=== PATIENT | male | born 1940 | race Caucasian/White ===

== ENCOUNTER 2016-12-07 10:22 | Day surgery (SDC) | payer MEDICARE ==
[2016-12-07] MEDS ORDERED: LIDOCAINE 1% 20 ML VIAL (10MG/ML) FOR IV START INTRADERMA PRN (10:29)
[2016-12-07] MEDS ORDERED: LACTATED RINGERS 1,000 ML IV SCH (10:29)
[2016-12-07 10:39] VITALS: RESP 18; TEMP 98.4
--- NOTE | 2016-12-07 11:32 | P.GSHP ---
History of Present Illness H&P Date: 12/07/16 Chief Complaint: Anal pain, bleeding and itching This a 76-year-old male referred from Dr. Mcfarlane. Patient presents today for colonoscopy. He's had issues with anal pain and bleeding and itching. Past Medical History Past Medical History: GERD/Reflux, Hyperlipidemia History of Any Multi-Drug Resistant Organisms: None Reported Past Surgical History: No Surgical Hx Reported Past Anesthesia/Blood Transfusion Reactions: No Reported Reaction Past Psychological History: No Psychological Hx Reported Smoking Status: Never smoker Medications and Allergies Home Medications Medication Instructions Recorded Confirmed Type Pantoprazole Sodium 40 mg PO DAILY 12/07/16 12/07/16 History Simvastatin [Zocor] 20 mg PO DAILY 12/07/16 12/07/16 History Allergies Allergy/AdvReac Type Severity Reaction Status Date / Time No Known Allergies Allergy Verified 12/07/16 10:34 Surgical - Exam Vital Signs Temp Pulse Resp BP Pulse Ox 98.4 F 82 18 130/90 98 12/07/16 10:38 12/07/16 10:38 12/07/16 10:38 12/07/16 10:38 12/07/16 10:38 - General well developed, no distress - Eyes PERRL - ENT normal pinna - Neck no masses - Respiratory normal expansion - Cardiovascular Rhythm: regular - Abdomen Abdomen: soft, non tender Assessment and Plan Plan: Anal pain, bleeding and itching. We'll perform colonoscopy.
--- NOTE | 2016-12-07 11:48 | P.OP ---
Date of Procedure: 12/07/16 Preoperative Diagnosis: Anal pain, bleeding and itching Postoperative Diagnosis: Internal and external hemorrhoids. Diverticulosis Procedure(s) Performed: colonoscopy Implants: Anesthesia: MAC Surgeon: Nicolás Duenas Pathology: none sent Condition: stable Disposition: PACU Indications for Procedure: Operative Findings: Description of Procedure: Patient's placed on the endoscopy table lateral position. He received IV sedation. Digital rectal exam was performed which revealed internal and external hemorrhoids. Flexible colonoscope was then placed patient anus passed throughout the entire colon. The ileocecal valve was visualized. Cecum, ascending and transverse colon appeared normal. In the descending; there is mild diverticular changes. Scope was brought back the rectum and this appeared normal. Scope was then withdrawn through the anus and there were internal hemorrhoids noted. The scope was also retroflexed and internal hemorrhoids were seen. There was no evidence of an anal fissure. There were minimal external hemorrhoids. The scope withdrawn for patient.
[2016-12-07] MEDS ORDERED: PROPOFOL 10 MG/ML 20 ML VIAL IV ONE (11:49)
[2016-12-07 12:13] VITALS: BP 129/83; PULSE 60
== END 2016-12-07 12:53 | disposition home or self-care (01) ==
LOC: ORWHC2ENDO 10:22
PROVIDERS: ATTEND Surgery
DX: K64.8 Other hemorrhoids (principal); K64.4 Residual hemorrhoidal skin tags; K57.30 Diverticulosis of large intestine without perforation or abscess without bleeding; K21.9 Gastro-esophageal reflux disease without esophagitis; E78.5 Hyperlipidemia, unspecified; Z79.899 Other long term (current) drug therapy
CPT/HCPCS: 45378; J2704

== ENCOUNTER 2017-01-07 08:54 | Day surgery (SDC) | payer MEDICARE ==
[2017-01-05 08:39] VITALS: BMI 28.8
[~2017-01-07 08:54] MED LIST: DEXAMETHASONE SOD PHOSPHATE 10 MG/ML 1 ML VIAL IV ONE; HEPARIN SODIUM,PORCINE 5,000 UNIT/ML 1 ML VIAL SQ ONE; HYDROmorphone 1 MG/ML 1 ML SYRINGE IVP PRN; LACTATED RINGERS 1,000 ML IV SCH; LIDOCAINE 1% 20 ML VIAL (10MG/ML) FOR IV START INTRADERMA PRN; NA PHOS,M-B/NA PHOS,DI-BA 133 ML ENEMA RECTAL ONE; ONDANSETRON 4 MG/2 ML VIAL IVP ONE; Pre Op ABX Message 1 EACH MISC MISCELLANE ONE; SCOPOLAMINE 1.5MG/72HR PATCH TRANSDERM ONE
[2017-01-07] MEDS ORDERED: LIDOCAINE 1% 20 ML VIAL (10MG/ML) FOR IV START INTRADERMA ONE (09:10)
[2017-01-07] MEDS ORDERED: LACTATED RINGERS 1,000 ML IV ONE (09:30)
--- NOTE | 2017-01-07 10:31 | P.GSHP ---
History of Present Illness H&P Date: 01/07/17 Chief Complaint: Internal and external hemorrhoids Cyst 76-year-old male with a trouble with hemorrhoids. Patient's pain bleeding and itching he presents today for hemorrhoidectomy. Past Medical History Past Medical History: GERD/Reflux, Hyperlipidemia, Prostate Disorder Additional Past Medical History / Comment(s): Enlarged Prostate, Hx. of Shingles. Hemorrhoids. History of Any Multi-Drug Resistant Organisms: None Reported Past Surgical History: Appendectomy, Orthopedic Surgery Additional Past Surgical History / Comment(s): Colonoscopy. Back surgery in the past. Past Anesthesia/Blood Transfusion Reactions: No Reported Reaction Smoking Status: Never smoker - Past Family History Mother Family Medical History: No Reported History Sister(s) Family Medical History: Cancer Additional Family Medical History / Comment(s): Lung Medications and Allergies Home Medications Medication Instructions Recorded Confirmed Type Pantoprazole Sodium 40 mg PO DAILY 12/07/16 01/05/17 History Simvastatin [Zocor] 20 mg PO DAILY 12/07/16 01/05/17 History Aspirin [Adult Low Dose Aspirin EC] 81 mg PO DAILY PRN 01/05/17 01/05/17 History Benazepril/Hydrochlorothiazide 1 each PO DAILY 01/05/17 01/05/17 History [Benazepril-Hctz 20-12.5 mg Tab] Cholecalciferol [Vitamin D3] 2,000 unit PO DAILY 01/05/17 01/05/17 History Ibuprofen [Motrin] 400 mg PO Q6HR PRN 01/05/17 01/05/17 History Multivitamin [Men's Multi-Vitamin] 1 each PO DAILY 01/05/17 01/05/17 History [place]-3/Dha/Epa/Fish Oil [Fish Oil 1 each PO TID 01/05/17 01/05/17 History 500 mg Softgel] Qeely-Tn-Ruhb (Unknown Dose) 1 tab PO DAILY 01/05/17 01/05/17 History Tamsulosin [Flomax] 0.4 mg PO DAILY 01/05/17 01/05/17 History Allergies Allergy/AdvReac Type Severity Reaction Status Date / Time No Known Allergies Allergy Verified 01/05/17 08:25 Surgical - Exam Vital Signs Temp Pulse Resp BP Pulse Ox 98.1 F 73 18 143/83 97 01/07/17 09:00 01/07/17 09:00 01/07/17 09:00 01/07/17 09:00 01/07/17 09:00 - General well developed, no distress - Eyes PERRL - ENT normal pinna - Neck no masses - Respiratory normal expansion - Cardiovascular Rhythm: regular - Abdomen Abdomen: soft, non tender - Rectum Hemorrhoids: moderate Assessment and Plan Plan: Internal and external hemorrhoids. We'll perform hemorrhagic.
[2017-01-07] MEDS ORDERED: BUPIVACAIN-EPI 0.5%-1:200,000 30 ML VIAL SQ ONE ×2 (10:48)
[2017-01-07] MEDS ORDERED: fentaNYL (PF) 50 MCG/ML 2 ML AMP ONE (10:51)
[2017-01-07] MEDS ORDERED: MIDAZOLAM 2 MG/2 ML VIAL ONE (10:51)
[2017-01-07] MEDS ORDERED: KETAMINE 10 MG/ML 20 ML VIAL ONE (10:51)
[2017-01-07] MEDS ORDERED: GELATIN SPONGE,ABSORB (LARGE) 1 EACH SPONGE TOPICAL ONE (11:06)
[2017-01-07 11:26] VITALS: TEMP 98.5
[2017-01-07 11:32] VITALS: RESP 16
--- NOTE | 2017-01-07 12:16 | P.OP ---
Date of Procedure: 01/07/17 Preoperative Diagnosis: Internal and external hemorrhoids Postoperative Diagnosis: Internal and external hemorrhoids Procedure(s) Performed: Hemorrhoidectomy Implants: Anesthesia: MAC Surgeon: Nicolás Duenas Estimated Blood Loss (ml): 5 Pathology: other (Internal and external hemorrhoids) Condition: stable Disposition: PACU Indications for Procedure: Operative Findings: Description of Procedure: The patient's placed on the operative table in the prone jackknife position. He received IV sedation. His perineum was prepped and draped usual sterile fashion. The peritoneum was anesthetized 1% local Xylocaine. Using the bivalved anal retractor the emergency exposed. The right anterior hemorrhoidal column was grasped with the Allis clamp then using the Harmonic scissors the hemorrhoid was performed. The right posterior and left lateral hemorrhoidal column was excised in similar fashion. There is no bleeding seen. The anus was packed with a Gelfoam. Patient sent to recovery in stable condition.
[2017-01-07 13:18] VITALS: BP 117/75; PULSE 74
[2017-01-07] MEDS ORDERED: MINERAL OIL 133 ML ENEMA RECTAL ONE (23:00)
== END 2017-01-07 13:56 | disposition home or self-care (01) ==
LOC: OR 08:54
PROVIDERS: ATTEND Surgery
DX: K64.8 Other hemorrhoids (principal); K64.4 Residual hemorrhoidal skin tags; K21.9 Gastro-esophageal reflux disease without esophagitis; E78.5 Hyperlipidemia, unspecified; N40.0 Benign prostatic hyperplasia without lower urinary tract symptoms; I10 Essential (primary) hypertension; Z79.82 Long term (current) use of aspirin; Z79.1 Long term (current) use of non-steroidal anti-inflammatories (NSAID); Z79.899 Other long term (current) drug therapy
CPT/HCPCS: 88304; 46260; J2250; J1644; J1100; J2405; J3010

== ENCOUNTER → 2019-07-20 | Outpatient (CLI) | payer MEDICARE ==
[2019-07-20 10:32] LABS: Basophils # (A) 0.1 k/uL (0-0.2); Basophils % (A) 1 %; Eosinophils # (A) 0.2 k/uL (0-0.7); Eosinophils % (A) 3 %; HCT 40.5 % (39.0-53.0); HGB 13.5 gm/dL (13.0-17.5); Lymphocytes # (A) 1.9 k/uL (1.0-4.8); Lymphocytes % (A) 21 %; MCH 30.7 pg (25.0-35.0); MCHC 33.3 g/dL (31.0-37.0); MCV 92.4 fL (80.0-100.0); Mean Platelet Volume 7.4; Monocytes # (A) 0.7 k/uL (0-1.0); Monocytes % (A) 8 %; Neutrophils # (A) 5.8 k/uL (1.3-7.7); Neutrophils % (A) 65 %; Platelet Count 251 k/uL (150-450); RBC 4.39 m/uL (4.30-5.90); RDW 13.3 % (11.5-15.5)
[2019-07-20 10:57] LABS: Potassium 4.7 mmol/L (3.5-5.1)
== END | disposition home or self-care (01) ==
LOC: LABPAT 09:10
PROVIDERS: ATTEND Orthopaedic Surgery
DX: Z01.812 Encounter for preprocedural laboratory examination (principal); G56.02 Carpal tunnel syndrome, left upper limb
CPT/HCPCS: 80051; 85025

== ENCOUNTER 2019-08-03 09:38 | Day surgery (SDC) | payer MEDICARE ==
[2019-07-31 16:59] VITALS: BMI 28.5
--- NOTE | 2019-08-02 14:32 | HP ---
HISTORY AND PHYSICAL DATE OF SURGERY: 08/03/2019 Suhail Carreon is an 79-year-old patient seen with symptomatic left carpal tunnel syndrome. We discussed options for treatment. Patient elected to proceed with decompression of left median nerve. Consent was obtained. PAST MEDICAL HISTORY: Hypertension, hyperlipidemia. PAST SURGICAL HISTORY: Noncontributory. DAILY MEDICATIONS: 1. Aspirin. 2. Benazepril/hydrochlorothiazide. 3. Simvastatin. ALLERGIES: None. SOCIAL HISTORY: Denies current tobacco use. PHYSICAL EVALUATION OF THE LEFT HAND: He has a positive carpal compression and carpal Tinel's causing the increased numbness, tingling throughout the median nerve distribution. There is decreased sensation throughout the median, median, and median nerve distribution. There is good perfusion distally. There is a good radial pulse present. There is no tenderness along the A1 jay areas. RADIOGRAPHS OF THE LEFT WRIST: Reveal some osteoarthritic changes involving the carpometacarpal joint. An EMG of the upper extremities revealed carpal tunnel syndrome bilaterally. IMPRESSION: 1. Left carpal tunnel syndrome. 2. Hypertension. 3. Hyperlipidemia. PLAN: Decompression of left median nerve. MMODL / IJN: [id number] /
[~2019-08-03 09:38] MED LIST changes: -HEPARIN SODIUM,PORCINE 5,000 UNIT/ML 1 ML VIAL SQ ONE; -HYDROmorphone 1 MG/ML 1 ML SYRINGE IVP PRN; +MIDAZOLAM 2 MG/2 ML VIAL IV PRN; -NA PHOS,M-B/NA PHOS,DI-BA 133 ML ENEMA RECTAL ONE; -ONDANSETRON 4 MG/2 ML VIAL IVP ONE; -Pre Op ABX Message 1 EACH MISC MISCELLANE ONE; -SCOPOLAMINE 1.5MG/72HR PATCH TRANSDERM ONE; +fentaNYL (PF) 50 MCG/ML 2 ML AMP IV PRN
[2019-08-03 10:07] VITALS: TEMP 98.3
[2019-08-03] MEDS ORDERED: LIDOCAINE 1% 20 ML VIAL (10MG/ML) FOR IV START SQ ONE (10:11)
[2019-08-03] MEDS ORDERED: ONDANSETRON 4 MG/2 ML VIAL IVP ONE (10:12)
[2019-08-03] MEDS ORDERED: LIDOCAINE 1% INJ 10MG/ML (20 ML MDV) ONE (11:34)
[2019-08-03] MEDS ORDERED: KETAMINE 10 MG/ML 20 ML VIAL ONE (11:34)
[2019-08-03] MEDS ORDERED: MIDAZOLAM 2 MG/2 ML VIAL ONE (11:34)
[2019-08-03] MEDS ORDERED: fentaNYL (PF) 50 MCG/ML 2 ML AMP ONE (11:34)
[2019-08-03] MEDS ORDERED: PROPOFOL 10 MG/ML 20 ML VIAL IV ONE (11:34)
[2019-08-03] MEDS ORDERED: BUPIVACAINE (PF) 0.25% 30 ML VIAL SQ ONE ×2 (11:39→11:49)
--- NOTE | 2019-08-03 12:07 | P.OP ---
Date of Procedure: 08/03/19 Preoperative Diagnosis: Left carpal tunnel syndrome Postoperative Diagnosis: Same Procedure(s) Performed: Decompression left median nerve Anesthesia: MAC, local Surgeon: Cholo Reyes Estimated Blood Loss (ml): 0 Pathology: none sent Condition: stable Disposition: PACU Indications for Procedure: 79-year-old patient seen with symptomatic left carpal tunnel syndrome. After having treatment options discussed, he elected to proceed with decompression median nerve. Operative Findings: See description of procedure Description of Procedure: The patient was taken to the operative suite. The patient received IV sedation by the department of anesthesia. A well-padded tourniquet was placed along the proximal left upper extremity. The left upper extremity was prepped and draped in the normal sterile orthopedic fashion. The proposed incision site was infiltrated with 10 mL quarter percent plain Marcaine. When sufficient local anesthesia was noted the extremity was elevated and tourniquet insufflated to 250. I now made an incision beginning at the distal volar wrist crease extending distally approximately 3 cm in line with the fourth metacarpal sharply through skin. I dissected down through the palmar fascia to the transverse carpal ligament. I made a small dudley incision through the transverse carpal ligament. I now released that transcarpal ligament proximally and distally with blunt Metzenbaums. There was good complete release of the transverse carpal ligament. There was good decompression of the nerve. We had good hemostasis. The wound was irrigated. The skin margins were proximal nylon suture. I applied sterile dressings. The tourniquet was released with immediate capillary refill of all digits. Patient was awakened and then transferred to recovery stable condition.
[2019-08-03 12:29] VITALS: BP 138/85; PULSE 63; RESP 18
== END 2019-08-03 12:50 | disposition home or self-care (01) ==
LOC: OR 09:38
PROVIDERS: ATTEND Orthopaedic Surgery
DX: G56.03 Carpal tunnel syndrome, bilateral upper limbs (principal); I10 Essential (primary) hypertension; E78.5 Hyperlipidemia, unspecified; N40.0 Benign prostatic hyperplasia without lower urinary tract symptoms; K64.9 Unspecified hemorrhoids; Z79.82 Long term (current) use of aspirin; Z79.899 Other long term (current) drug therapy
CPT/HCPCS: 64721; J2250; J1100; J0690; J2405; J2001; J3010; J2704

== ENCOUNTER → 2021-01-03 | Outpatient (CLI) | payer MEDICARE ==
--- NOTE | 2021-01-04 04:42 | MR ---
EXAMINATION TYPE: MR brain and iac wo/w con DATE OF EXAM: 01/03/2021 COMPARISON: 01/25/2016 HISTORY: Benign neoplasm of brain, supratentorial, dizziness CONTRAST: Standard multiplanar, multisequence MRI departmental protocol utilizing 8.5 mL intravenous Gadavist g adolinium contrast. Diffusion images show no evidence of an acute infarct. There is cerebral cortical atrophy. There is n o mass effect nor midline shift. There is extensive patchy white matter increased signal in the cereb ral hemispheres bilaterally involving all of the lobes. These measure up to 12 mm and are somewhat co alescent around the lateral ventricles. Total number of lesions is probably more than 50. The brainst em shows small area of increased signal in the posterior luigi. The sella turcica appears normal. Ther e is no evidence of orbital mass. The internal auditory canals appear normal. There is no evidence of cerebellopontine angle mass. The acoustic nerve and vestibular nerves appear intact. There is no pathologic posterior fossa enhancemen t. There is normal enhancement of the venous sinuses. There is some increased signal on the T2 images in the right mastoid air cells suggestive of mastoiditis. 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 Cerebral atrophy. No focal posterior fossa abnormality. Changes of right-sided mastoiditis. Unchanged .
== END | disposition home or self-care (01) ==
LOC: RADMRIMAIN 12:55
PROVIDERS: ATTEND Psychiatry & Neurology Neurology
DX: D33.0 Benign neoplasm of brain, supratentorial (principal); I67.82 Cerebral ischemia; G31.9 Degenerative disease of nervous system, unspecified; R90.82 White matter disease, unspecified; H70.91 Unspecified mastoiditis, right ear
CPT/HCPCS: 70553; A9585

== ENCOUNTER → 2021-08-08 | Outpatient (CLI) | payer MEDICARE ==
--- NOTE | 2021-08-09 07:45 | CT ---
EXAMINATION TYPE: CT iac wo con DATE OF EXAM: 08/08/2021 COMPARISON: MRI dated 01/03/2021 HISTORY: Mastoiditis, unspecified ear, dizziness CT DLP: 150mGycm Automated exposure control for dose reduction was used. FINDINGS: Partially opacified right mastoid cells. The right aditus and antrum is patent. Intact right scutum w ith preserved right Prussak space. Unremarkable right middle ear cavity and ossicles. Symmetrical unr emarkable inner ear structures and internal auditory canals. Unremarkable left middle ear cavity. Clear left mastoid air cells. Symmetrical unremarkable external auditory canals. Mucosal thickening of the left maxillary sinus. Degenerative changes of the atlantoo dontoid articulation. Unremarkable orbits. IMPRESSION: Partially opacified right mastoid cells suggestive of mastoiditis, appreciated previously. Otherwise unremarkable temporal bones.
== END | disposition home or self-care (01) ==
LOC: RADCTMAIN 14:49
PROVIDERS: ATTEND Otolaryngology
DX: H70.91 Unspecified mastoiditis, right ear (principal)
CPT/HCPCS: 70480

== ENCOUNTER 2023-04-01 15:30 | Emergency (ER) | payer MEDICARE ==
--- NOTE | 2023-04-01 15:50 | ED ---
General Adult HPI - General Stated complaint: unable to urinate Time Seen by Provider: 04/01/23 15:49 Source: patient, RN notes reviewed Mode of arrival: ambulatory Limitations: no limitations - History of Present Illness Initial comments: 82-year-old male presenting with chief complaint of difficulty urinating. Patient had Simms catheter removed by Dr. Stout today in the office. He has not urinated since removing the Simms catheter. He denies any suprapubic pain. No obvious hematuria. No flank pain. No fevers or chills. No nausea or vomiting. - Related Data Home Medications Medication Instructions Recorded Confirmed Pantoprazole Sodium 40 mg PO DAILY 12/07/16 08/03/19 Simvastatin [Zocor] 20 mg PO DAILY 12/07/16 08/03/19 Aspirin [Adult Low Dose Aspirin EC] 81 mg PO DAILY PRN 01/05/17 07/31/19 Benazepril/Hydrochlorothiazide 1 each PO HS 01/05/17 08/03/19 [Benazepril-Hctz 20-12.5 mg Tab] Cholecalciferol [Vitamin D3] 2,000 unit PO DAILY 01/05/17 08/03/19 Multivitamin [Men's Multi-Vitamin] 1 each PO DAILY 01/05/17 08/03/19 [place]-3/Dha/Epa/Fish Oil [Fish Oil 1 each PO TID 01/05/17 08/03/19 500 mg Softgel] Cpnlq-Un-Liza (Unknown Dose) 1 tab PO DAILY 01/05/17 08/03/19 Tamsulosin [Flomax] 0.4 mg PO DAILY 01/05/17 08/03/19 Allergies Allergy/AdvReac Type Severity Reaction Status Date / Time No Known Allergies Allergy Verified 04/01/23 15:51 Review of Systems ROS Statement: Those systems with pertinent positive or pertinent negative responses have been documented in the HPI. ROS Other: All systems not noted in ROS Statement are negative. Past Medical History Past Medical History: GERD/Reflux, Hyperlipidemia, Prostate Disorder Additional Past Medical History / Comment(s): Enlarged Prostate, Hx. of Shingles. Hemorrhoids. History of Any Multi-Drug Resistant Organisms: None Reported Past Surgical History: Appendectomy, Orthopedic Surgery Additional Past Surgical History / Comment(s): Colonoscopy. Back surgery in the past. Past Anesthesia/Blood Transfusion Reactions: No Reported Reaction Past Psychological History: No Psychological Hx Reported Past Alcohol Use History: Occasional Past Drug Use History: None Reported - Past Family History Mother Family Medical History: No Reported History Sister(s) Family Medical History: Cancer Additional Family Medical History / Comment(s): Lung General Exam - General Exam Comments Initial Comments: Visual Physical Exam Vital signs reviewed General: Well-appearing, nontoxic, no acute distress. Head: Normocephalic, atraumatic Eyes: PERRLA, EOMI ENT: Airway patent Chest: Nonlabored breathing Skin: No visual rash, normal skin tone Neuro: Alert and oriented 3 Musculoskeletal: No gross abnormalities Limitations: no limitations General appearance: alert, in no apparent distress Head exam: Present: atraumatic, normocephalic, normal inspection Eye exam: Present: normal appearance, EOMI Neck exam: Present: normal inspection, full ROM Respiratory exam: Absent: respiratory distress GI/Abdominal exam: Present: soft. Absent: distended, tenderness, guarding, rebound, rigid Neurological exam: Present: alert, oriented X3 Psychiatric exam: Present: normal affect, normal mood Skin exam: Present: warm, dry, intact, normal color. Absent: rash Course Vital Signs 04/01/23 04/01/23 15:49 19:10 Temperature 97.9 F 98.1 F Pulse Rate 80 76 Respiratory 16 18 Rate Blood Pressure 139/76 131/78 O2 Sat by Pulse 96 98 Oximetry Medical Decision Making - Medical Decision Making Was pt. sent in by a medical professional or institution (, PA, TEMPLATE REPRODUCTION TECHNICIAN, urgent care, hospital, or correction...) When possible be specific @ -No Did you speak to anyone other than the patient for history (EMS, parent, family, police, friend...)? What history was obtained from this source @ -No Did you review nursing and triage notes (agree or disagree)? Why? @ -I reviewed and agree with nursing and triage notes Were old charts reviewed (outside hosp., previous admission, EMS record, old EKG, old radiological studies, urgent care reports/EKG's, correction records)? Report findings @ -No old charts were reviewed Differential Diagnosis (chest pain, altered mental status, abdominal pain women, abdominal pain men, vaginal bleeding, weakness, fever, dyspnea, syncope, headache, dizziness, GI bleed, back pain, seizure, CVA, palpatations, mental health, musculoskeletal)? @ -Differential includes UTI, obstructive uropathy, this is not an all inclusive list EKG interpreted by me (3pts min.). @ -As above X-rays interpreted by me (1pt min.). @ -None done CT interpreted by me (1pt min.). @ -None done U/S interpreted by me (1pt. min.). @ -None done What testing was considered but not performed or refused? (CT, X-rays, U/S, labs)? Why? @ -None What meds were considered but not given or refused? Why? @ -None Did you discuss the management of the patient with other professionals (professionals i.e. Dr., PA, TEMPLATE REPRODUCTION TECHNICIAN, lab, RT, psych nurse, high school social studies tutor, distributor sales manager, teacher, forest fire officer, catalytic case operator)? Give summary @ -No Was smoking cessation discussed for >3mins.? @ -No Was critical care preformed (if so, how long)? @ -No Were there social determinants of health that impacted care today? How? (Homelessness, low income, unemployed, alcoholism, drug addiction, transportation, low edu. Level, literacy, decrease access to med. care, long term, rehab)? @ -No Was there de-escalation of care discussed even if they declined (Discuss DNR or withdrawal of care, Hospice)? DNR status @ -No What co-morbidities impacted this encounter? (DM, HTN, Smoking, COPD, CAD, Cancer, CVA, ARF, Chemo, Hep., AIDS, mental health diagnosis, sleep apnea, morbid obesity)? @ -None Was patient admitted / discharged? Hospital course, mention meds given and route, prescriptions, significant lab abnormalities, going to OR and other pertinent info. @ -82-year-old male presenting with chief complaint of difficulty urinating. He had a Simms catheter removed by his urologist in the office and has not urinated since. On bladder scan he has 291 mL in the bladder. Simms catheter is placed and the patient was immediately able to drain. Urine shows no evidence of UTI. Patient is instructed to follow-up with his urologist Dr. Stout. Follow-up with PCP. Report back to ER with any new or worsening symptoms. Discussed return parameters and answered all questions. Patient conveyed verbal understanding and agreed to the plan. I discussed this case in detail with my attending Dr. Dela Cruz Undiagnosed new problem with uncertain prognosis? @ -No Drug Therapy requiring intensive monitoring for toxicity (Heparin, Nitro, Insulin, Cardizem)? @ -No Were any procedures done? @ -No Diagnosis/symptom? @ -Urinary retention Acute, or Chronic, or Acute on Chronic? @ -Acute Uncomplicated (without systemic symptoms) or Complicated (systemic symptoms)? @ -uncomplicated Side effects of treatment? @ -No Exacerbation, Progression, or Severe Exacerbation? @ -No Poses a threat to life or bodily function? How? (Chest pain, [place], [place], pneumonia, PE, COPD, DKA, ARF, appy, cholecystitis, CVA, Diverticulitis, Homicidal, Suicidal, threat to staff... and all critical care pts) @ -No - Lab Data Lab Results 04/01/23 Range/Units 18:02 Urine Color Yellow Urine Appearance Clear (Clear) Urine pH 5.5 (5.0-8.0) Ur Specific [place] 1.024 (1.001-1.035) Urine Protein Trace H (Negative) Urine Glucose (UA) Negative (Negative) Urine Ketones Negative (Negative) Urine Blood Negative (Negative) Urine Nitrite Negative (Negative) Urine Bilirubin Negative (Negative) Urine Urobilinogen <2.0 (<2.0) mg/dL Ur Leukocyte Esterase Negative (Negative) Disposition Clinical Impression: Urinary retention Disposition: HOME SELF-CARE Condition: Good Instructions (If sedation given, give patient instructions): Urinary Retention in Men (ED) Additional Instructions: Follow-up with PCP and urologist. Report back to ER with any new or worsening symptoms. Is patient prescribed a controlled substance at d/c from ED?: No Referrals: Marcelino Mcfarlane MD [Primary Care Provider] - 1-2 days Beni Stout MD [STAFF PHYSICIAN] - 1-2 days Time of Disposition: 18:49
[2023-04-01 18:33] LABS: Appearance,Urine Clear (Clear); Bilirubin,Urine Negative (Negative); Blood,Urine Negative (Negative); Color,Urine Yellow; Glucose,Urine (UA) Negative (Negative); Ketones,Urine Negative (Negative); Leukocyte Esterase,Urine Negative (Negative); Nitrite,Urine Negative (Negative); PH, Urine 5.5 (5.0-8.0); Protein,Urine Trace (Negative); Specific Gravity,Urine 1.024 (1.001-1.035); Urobilinogen,Urine <2.0 mg/dL (<2.0)
[2023-04-01 19:25] VITALS: BP 131/78; PULSE 76; RESP 18; TEMP 98.1
== END 2023-04-01 19:13 | disposition home or self-care (01) ==
LOC: EC 15:30
DX: R33.9 Retention of urine, unspecified (principal); E78.5 Hyperlipidemia, unspecified; K21.9 Gastro-esophageal reflux disease without esophagitis; Z79.899 Other long term (current) drug therapy
CPT/HCPCS: 51702; 51798; 81003; 99283; 99284

== ENCOUNTER 2023-05-14 03:16 | Emergency (ER) | payer MEDICARE ==
[2023-05-14 03:45] VITALS: RESP 18
[2023-05-14] MEDS ORDERED: LIDOCAINE 2% URO-JET JELLY 5 ML KIT URETHRAL ONE (03:49)
[2023-05-14 04:38] LABS: Amorphous Sediment,Urine Rare /hpf; Bacteria,Urine Moderate /hpf; Mucus,Urine Rare /hpf; RBC,Urine >182 /hpf (0-5); Squamous Epithelial Cell,Urine 1 /hpf (0-4); WBC,Urine 36 /hpf (0-5)
[2023-05-14 04:39] LABS: Appearance,Urine Bloody (Clear); Color,Urine Light Red; Specific Gravity,Urine 1.015 (1.001-1.035)
[2023-05-14 04:40] LABS: Bilirubin,Urine Negative (Negative); Blood,Urine Large (Negative); Glucose,Urine (UA) Negative (Negative); Ketones,Urine Negative (Negative); Leukocyte Esterase,Urine Moderate (Negative); Nitrite,Urine Negative (Negative); Protein,Urine 1+ (Negative); Urobilinogen,Urine 0.2 mg/dL (<2.0)
[2023-05-14] MEDS ORDERED: SULFAMETHOX-TMP 800-160MG 1 EACH TAB PO STA (04:48)
--- NOTE | 2023-05-14 04:55 | ED ---
General Adult HPI - General Chief complaint: Urogenital Stated complaint: Post op complication Time Seen by Provider: 05/14/23 03:51 Source: patient, RN notes reviewed, old records reviewed Mode of arrival: ambulatory Limitations: no limitations - History of Present Illness Initial comments: Patient is an 82-year-old male presents with department for any urinary retention. Recently had a procedure on his prostate by Dr. Cobian. Was progressing well and had his indwelling Simsm catheter removed earlier today. Has been unable to urinate since last night. Presents as a police he needs replacement of the Smims catheter. No other symptoms at this time other than suprapubic abdominal discomfort. - Related Data Home Medications Medication Instructions Recorded Confirmed Pantoprazole Sodium 40 mg PO DAILY 12/07/16 08/03/19 Simvastatin [Zocor] 20 mg PO DAILY 12/07/16 08/03/19 Aspirin [Adult Low Dose Aspirin EC] 81 mg PO DAILY PRN 01/05/17 07/31/19 Benazepril/Hydrochlorothiazide 1 each PO HS 01/05/17 08/03/19 [Benazepril-Hctz 20-12.5 mg Tab] Cholecalciferol [Vitamin D3] 2,000 unit PO DAILY 01/05/17 08/03/19 Multivitamin [Men's Multi-Vitamin] 1 each PO DAILY 01/05/17 08/03/19 [place]-3/Dha/Epa/Fish Oil [Fish Oil 1 each PO TID 01/05/17 08/03/19 500 mg Softgel] [id number] (Unknown Dose) 1 tab PO DAILY 01/05/17 08/03/19 Tamsulosin [Flomax] 0.4 mg PO DAILY 01/05/17 08/03/19 Previous Rx's Medication Instructions Recorded Sulfamethox-Tmp 800-160Mg [Bactrim 1 tab PO Q12HR 7 Days #14 tab 05/14/23 DS 800-160 mg] Allergies Allergy/AdvReac Type Severity Reaction Status Date / Time No Known Allergies Allergy Verified 04/01/23 15:51 Review of Systems ROS Statement: Those systems with pertinent positive or pertinent negative responses have been documented in the HPI. Review of Systems: CONST: Denies fever EYES: Denies blurry vision ENT: Denies nasal congestion C/V: Denies Chest pain RESP: Denies shortness of breath GI: Endorses suprapubic abdominal pain : Endorses urinary retention SKIN: Denies rash. MSK: Denies joint pain. NEURO: Denies headache ROS Other: All systems not noted in ROS Statement are negative. Past Medical History Past Medical History: GERD/Reflux, Hyperlipidemia, Prostate Disorder Additional Past Medical History / Comment(s): Enlarged Prostate, Hx. of Shingles. Hemorrhoids. History of Any Multi-Drug Resistant Organisms: None Reported Past Surgical History: Appendectomy, Orthopedic Surgery Additional Past Surgical History / Comment(s): Colonoscopy. Back surgery in the past. Past Anesthesia/Blood Transfusion Reactions: No Reported Reaction Past Psychological History: No Psychological Hx Reported Past Alcohol Use History: Occasional Past Drug Use History: None Reported - Past Family History Mother Family Medical History: No Reported History Sister(s) Family Medical History: Cancer Additional Family Medical History / Comment(s): Lung General Exam - General Exam Comments Initial Comments: General: Appears in mild distress distress. HEAD: Normal with no signs of head trauma. EYES: EOMI ENT: Hearing grossly intact, normal oropharynx. RESPIRATORY: Clear breath sounds bilaterally C/V: S1 and S2 auscultated ABD: Abdomen is soft, with suprapubic distention and tenderness. No guarding. No rebound tenderness. No peritoneal signs. EXT: Normal range of motion, no obvious deformity SKIN: No rashes or lesions observed on exposed skin. NEURO: Alert and oriented 4. Limitations: no limitations Course Vital Signs 05/14/23 03:32 Temperature 98 F Pulse Rate 80 Respiratory 18 Rate Blood Pressure 167/98 O2 Sat by Pulse 98 Oximetry Medical Decision Making - Medical Decision Making Was pt. sent in by a medical professional or institution (, PA, BARBER TOOL SHARPENER, urgent care, hospital, or fci...) When possible be specific @ -No Did you speak to anyone other than the patient for history (EMS, parent, family, police, friend...)? What history was obtained from this source @ -No Did you review nursing and triage notes (agree or disagree)? Why? @ -I reviewed and agree with nursing and triage notes Were old charts reviewed (outside hosp., previous admission, EMS record, old EKG, old radiological studies, urgent care reports/EKG's, fci records)? Report findings @ -Old charts reviewd Differential Diagnosis (chest pain, altered mental status, abdominal pain women, abdominal pain men, vaginal bleeding, weakness, fever, dyspnea, syncope, headache, dizziness, GI bleed, back pain, seizure, CVA, palpatations, mental health, musculoskeletal)? @ -Urinary retention, UTI. This list is not all-inclusive. EKG interpreted by me (3pts min.). @ -None done X-rays interpreted by me (1pt min.). @ -None done CT interpreted by me (1pt min.). @ -None done U/S interpreted by me (1pt. min.). @ -None done What testing was considered but not performed or refused? (CT, X-rays, U/S, labs)? Why? @ -None What meds were considered but not given or refused? Why? @ -None Did you discuss the management of the patient with other professionals (professionals i.e. , PA, BARBER TOOL SHARPENER, lab, RT, psych nurse, vp digital marketing social media and crm, doctor of dental medicine, teacher, chief development officer, case worker)? Give summary @ -No Was smoking cessation discussed for >3mins.? @ -No Was critical care preformed (if so, how long)? @ -No Were there social determinants of health that impacted care today? How? (Homelessness, low income, unemployed, alcoholism, drug addiction, transportation, low edu. Level, literacy, decrease access to med. care, care home, rehab)? @ -No Was there de-escalation of care discussed even if they declined (Discuss DNR or withdrawal of care, Hospice)? DNR status @ -No What co-morbidities impacted this encounter? (DM, HTN, Smoking, COPD, CAD, Cancer, CVA, ARF, Chemo, Hep., AIDS, mental health diagnosis, sleep apnea, morbid obesity)? @ -None Was patient admitted / discharged? Hospital course, mention meds given and route, prescriptions, significant lab abnormalities, going to OR and other pertinent info. @ -Based on the patient's presentation and physical exam, presents with suspected urinary retention. Bladder scan shows over 500 mL of urine. We will replace his Simms catheter which was removed earlier today. He was in agreement this plan. Vital signs within acceptable limits. Patient tolerated the procedure well. Patient's urinalysis is concerning for UTI and therefore he will be started on Bactrim. He'll be discharged home at this time with strict term precautions as well as instructions to follow up with his urologist Dr. Cassidy. He was in agreement this plan. I will provide the patient with a prescription for Bactrim. I instructed the patient to follow up with their PCP in the next 1-3 days. I provided contact information for follow up with Dr. Stout. I explained that the patient should return to the emergency department if they experience any worsening symptoms. Strict return precautions were discussed with the patient. The patient expressed understanding of these instructions. I answered all questions that the patient had. The patient was discharged home in good condition with their prescriptions and follow up information. Undiagnosed new problem with uncertain prognosis? @ -No Drug Therapy requiring intensive monitoring for toxicity (Heparin, Nitro, Insulin, Cardizem)? @ -No Were any procedures done? @ -No Diagnosis/symptom? @ -Urinary retention, UTI, Simms catheter placement Acute, or Chronic, or Acute on Chronic? @ -Acute Uncomplicated (without systemic symptoms) or Complicated (systemic symptoms)? @ -complicated Side effects of treatment? @ -No Exacerbation, Progression, or Severe Exacerbation? @ -No Poses a threat to life or bodily function? How? (Chest pain, [place], [place], pneumonia, PE, COPD, DKA, ARF, appy, cholecystitis, CVA, Diverticulitis, Homicidal, Suicidal, threat to staff... and all critical care pts) @ -No - Lab Data Lab Results 05/14/23 Range/Units 03:55 Urine Color Light Red Urine Appearance Bloody (Clear) Urine pH 6.0 (5.0-8.0) Ur Specific [place] 1.015 (1.001-1.035) Urine Protein 1+ H (Negative) Urine Glucose (UA) Negative (Negative) Urine Ketones Negative (Negative) Urine Blood Large H (Negative) Urine Nitrite Negative (Negative) Urine Bilirubin Negative (Negative) Urine Urobilinogen 0.2 (<2.0) mg/dL Ur Leukocyte Esterase Moderate H (Negative) Urine RBC >182 H (0-5) /hpf Urine WBC 36 H (0-5) /hpf Ur Squamous Epith Cells 1 (0-4) /hpf Amorphous Sediment Rare H (None) /hpf Urine Bacteria Moderate H (None) /hpf Urine Mucus Rare H (None) /hpf Disposition Clinical Impression: Simms catheter in place, Urinary retention, UTI (urinary tract infection) Disposition: HOME SELF-CARE Condition: Good Instructions (If sedation given, give patient instructions): Urinary Tract Infection in Men (ED), Simms Catheter Placement and Care (ED) Prescriptions: Sulfamethox-Tmp 800-160Mg [Bactrim DS 800-160 mg] 1 tab PO Q12HR 7 Days #14 tab Is patient prescribed a controlled substance at d/c from ED?: No Referrals: Marcelino Mcfarlane MD [Primary Care Provider] - 1-2 days Beni Stout MD [STAFF PHYSICIAN] - 1-2 days Time of Disposition: 04:48
[2023-05-14 05:24] VITALS: BP 130/84; PULSE 79; TEMP 97.9
== END 2023-05-14 05:15 | disposition home or self-care (01) ==
LOC: EC 03:16
DX: T83.098A Other mechanical complication of other urinary catheter, initial encounter (principal); R33.9 Retention of urine, unspecified; N39.0 Urinary tract infection, site not specified; K21.9 Gastro-esophageal reflux disease without esophagitis; E78.5 Hyperlipidemia, unspecified; Z79.899 Other long term (current) drug therapy; Z79.82 Long term (current) use of aspirin
CPT/HCPCS: 51702; 51798; 81001; 87086; 99284

== ENCOUNTER 2023-05-23 02:53 | Inpatient (IN) | payer MEDICARE ==
[2023-05-23 04:28] LABS: Basophils % (A) 0 %; Eosinophils # (A) 0.3 k/uL (0-0.7); Eosinophils % (A) 4 %; HCT 33.5 % (39.0-53.0); HGB 11.6 gm/dL (13.0-17.5); Lymphocytes # (A) 0.6 k/uL (1.0-4.8); Lymphocytes % (A) 7 %; MCH 30.9 pg (25.0-35.0); MCHC 34.5 g/dL (31.0-37.0); MCV 89.7 fL (80.0-100.0); Mean Platelet Volume 7.9; Monocytes # (A) 0.2 k/uL (0-1.0); Monocytes % (A) 2 %; Neutrophils # (A) 6.9 k/uL (1.3-7.7); Neutrophils % (A) 84 %; Platelet Count 157 k/uL (150-450); RBC 3.74 m/uL (4.30-5.90); RDW 13.4 % (11.5-15.5); WBC 8.2 k/uL (3.8-10.6)
[2023-05-23 04:45] LABS: ALT 110 U/L (4-49); AST 65 U/L (17-59); African American GFR (CKD) 44 (>60 ml/min/1.73 sqM); Albumin 3.6 g/dL (3.5-5.0); Alkaline Phosphatase 85 U/L (38-126); Anion Gap 14 mmol/L; Blood Urea Nitrogen 24 mg/dL (9-20); C Reactive Protein 8.9 mg/dL (<1.0); Calcium 8.9 mg/dL (8.4-10.2); Carbon Dioxide 15 mmol/L (22-30); Chloride 94 mmol/L (98-107); Glucose 102 mg/dL (74-99); Non-African American GFR(CKD) 38 (>60 ml/min/1.73 sqM); Potassium 4.2 mmol/L (3.5-5.1); Sodium 123 mmol/L (137-145); Total Bilirubin 0.6 mg/dL (0.2-1.3); Total Protein 6.4 g/dL (6.3-8.2)
[2023-05-23] MEDS ORDERED: SODIUM CHLORIDE 0.9% 1,000 ML IV ONE ×2 (06:32→07:33)
[2023-05-23] MEDS ORDERED: MAG HYDROX/AL HYDROX/SIMETH 30 ML CUP PO PRN (07:49)
[2023-05-23] MEDS ORDERED: NALOXONE 0.4 MG/ML 1 ML VIAL IV PRN (07:49)
[2023-05-23 08:19] LABS: Appearance,Urine Clear (Clear); Bilirubin,Urine Negative (Negative); Blood,Urine Moderate (Negative); Color,Urine Light Yellow; Glucose,Urine (UA) Negative (Negative); Ketones,Urine Negative (Negative); Leukocyte Esterase,Urine Negative (Negative); Nitrite,Urine Negative (Negative); Protein,Urine Negative (Negative); Urobilinogen,Urine <2.0 mg/dL (<2.0)
[2023-05-23 08:27] LABS: RBC,Urine 30 /hpf (0-5); WBC,Urine 2 /hpf (0-5)
--- NOTE | 2023-05-23 08:53 | ED ---
Extremity Problem HPI - General Chief complaint: Extremity Problem,Nontraumatic Stated complaint: numb fingers,rash Time Seen by Provider: 05/23/23 03:40 Source: patient Mode of arrival: wheelchair Limitations: no limitations - History of Present Illness Initial comments: This patient is an 82-year-old man who presents of evaluation for a constellation of symptoms that going on for approximately 3 days now. The patient noticed that he has been feeling fatigued. He has been having chills but no fever. He noticed that he has a little bit of leg swelling and over the past day or 2 has noticed a rash to both lower extremities. The patient has not noticed unilateral leg pain. No chest pain. No cough or dyspnea. MD Complaint: extremity swelling Onset/Timin -: days(s) History of Same: No Consistency: constant Improves with: nothing Worsens with: nothing Associated Symptoms: rash - Related Data Home Medications Medication Instructions Recorded Confirmed Simvastatin [Zocor] 20 mg PO DAILY 12/07/16 05/23/23 Aspirin [Adult Low Dose Aspirin EC] 81 mg PO DAILY PRN 01/05/17 05/23/23 Cholecalciferol [Vitamin D3 (25 50 mcg PO DAILY 05/23/23 05/23/23 Mcg = 1000 Iu)] Fish Oil/Dha/Epa [Fish Oil 1,200 3 cap PO DAILY 05/23/23 05/23/23 mg Fish Oil] Garlic 2,000 mg PO DAILY 05/23/23 05/23/23 Previous Rx's Medication Instructions Recorded Chlorthalidone [Hygroton] 25 mg PO DAILY 30 Days #30 tab 05/26/23 Famotidine [Pepcid] 20 mg PO DAILY 30 Days #30 tab 05/26/23 Magnesium Oxide [Mag-Ox] 400 mg PO DAILY 30 Days #30 tab 05/26/23 Potassium Chloride ER [K-Dur 10] 10 meq PO DAILY 30 Days #30 tab 05/26/23 amLODIPine [Norvasc] 5 mg PO DAILY 30 Days #30 tab 05/26/23 Allergies Allergy/AdvReac Type Severity Reaction Status Date / Time No Known Allergies Allergy Verified 05/23/23 12:01 Review of Systems ROS Statement: Those systems with pertinent positive or pertinent negative responses have been documented in the HPI. ROS Other: All systems not noted in ROS Statement are negative. Constitutional: Reports: chills, weakness. Denies: fever Eyes: Denies: vision change Respiratory: Denies: cough, dyspnea, wheezes Cardiovascular: Reports: edema. Denies: chest pain, palpitations, syncope Gastrointestinal: Denies: abdominal pain, nausea, vomiting, diarrhea, constipation Genitourinary: Denies: dysuria, frequency, hematuria Musculoskeletal: Denies: back pain Skin: Reports: rash Neurological: Denies: headache, weakness, numbness Past Medical History Past Medical History: GERD/Reflux, Hyperlipidemia, Prostate Disorder Additional Past Medical History / Comment(s): Enlarged Prostate, Hx. of Shingles. Hemorrhoids. History of Any Multi-Drug Resistant Organisms: None Reported Past Surgical History: Appendectomy, Orthopedic Surgery Additional Past Surgical History / Comment(s): Colonoscopy. Back surgery in the past. prostate surgery Past Anesthesia/Blood Transfusion Reactions: No Reported Reaction Past Psychological History: No Psychological Hx Reported Smoking Status: Never smoker Past Alcohol Use History: Occasional Past Drug Use History: None Reported - Past Family History Mother Family Medical History: No Reported History Sister(s) Family Medical History: Cancer Additional Family Medical History / Comment(s): Lung General Exam Limitations: no limitations General appearance: alert, in no apparent distress Head exam: Present: atraumatic, normocephalic Eye exam: Present: normal appearance. Absent: scleral icterus, conjunctival injection Neck exam: Present: normal inspection Respiratory exam: Present: normal lung sounds bilaterally. Absent: respiratory distress, wheezes, rales, rhonchi, stridor Cardiovascular Exam: Present: regular rate, normal rhythm, normal heart sounds. Absent: systolic murmur, diastolic murmur, rubs, gallop GI/Abdominal exam: Present: soft. Absent: distended, tenderness, guarding, rebound, rigid, mass Extremities exam: Present: normal inspection, normal capillary refill, pedal edema (Trace edema bilateral ankles). Absent: calf tenderness Back exam: Present: normal inspection. Absent: CVA tenderness (R), CVA tenderness (L) Neurological exam: Present: alert, oriented X3. Absent: motor sensory deficit Skin exam: Present: warm, dry, intact, normal color, petechiae (Bilateral lower extremities). Absent: rash, vesicles, pallor, mottled Course Vital Signs 05/23/23 05/23/23 05/23/23 03:05 07:32 08:39 Temperature 98 F Pulse Rate 98 82 Respiratory 18 18 18 Rate Blood Pressure 91/60 121/71 O2 Sat by Pulse 95 98 Oximetry 05/23/23 05/23/23 05/23/23 08:57 11:25 14:56 Temperature 99.7 F H Pulse Rate 73 84 87 Respiratory 18 18 18 Rate Blood Pressure 133/82 117/80 120/68 O2 Sat by Pulse 97 97 95 Oximetry 05/23/23 05/23/23 05/23/23 17:32 19:02 20:56 Temperature 98.2 F 98.3 F Pulse Rate 85 74 74 Respiratory 18 18 18 Rate Blood Pressure 117/76 112/69 133/83 O2 Sat by Pulse 95 95 95 Oximetry 05/23/23 22:34 Temperature Pulse Rate 84 Respiratory 18 Rate Blood Pressure 140/82 O2 Sat by Pulse 98 Oximetry Medical Decision Making - Medical Decision Making Patient is a 82-year-old man with a constellation of mild symptoms as well as having bilateral lower extremity petechial rash. 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 Patient found to have hyponatremia and will be admitted to have correction of this. The patient had elevated d-dimer and had CT of the chest to rule out pulmonary embolism. I interpreted the computed tomography scan to show no pulmonary embolism Was pt. sent in by a medical professional or institution (NANCY Villar, RESIDENTIAL ELECTRICIAN, urgent care, hospital, or group home...) When possible be specific @ -[No] Did you speak to anyone other than the patient for history (EMS, parent, family, police, friend...)? What history was obtained from this source @ -[No] Did you review nursing and triage notes (agree or disagree)? Why? @ -[I reviewed and agree with nursing and triage notes] Were old charts reviewed (outside hosp., previous admission, EMS record, old EKG, old radiological studies, urgent care reports/EKG's, group home records)? Report findings @ -[No old charts were reviewed] Differential Diagnosis (chest pain, altered mental status, abdominal pain women, abdominal pain men, vaginal bleeding, weakness, fever, dyspnea, syncope, headache, dizziness, GI bleed, back pain, seizure, CVA, palpatations, mental health, musculoskeletal)? @ -[Differential Weakness: Hypoglycemia, shock, sepsis, hyponatremia, anemia, infection, NM, ETOH, adverse medicine reaction, overdose, stroke, this is not meant to be an all-inclusive list. EKG interpreted by me (3pts min.). @ -[As above] X-rays interpreted by me (1pt min.). @ -[None done] CT interpreted by me (1pt min.). @ -[I interpreted as above U/S interpreted by me (1pt. min.). @ -[None done] What testing was considered but not performed or refused? (CT, X-rays, U/S, labs)? Why? @ -[None] What meds were considered but not given or refused? Why? @ -[None] Did you discuss the management of the patient with other professionals (professionals i.e. , PA, RESIDENTIAL ELECTRICIAN, lab, RT, psych nurse, licensed social worker, neurophysiologist, teacher, community liaison officer, rifle case repairer)? Give summary @ -[No] Was smoking cessation discussed for >3mins.? @ -[No] Was critical care preformed (if so, how long)? @ -[No] Were there social determinants of health that impacted care today? How? (Homelessness, low income, unemployed, alcoholism, drug addiction, transportation, low edu. Level, literacy, decrease access to med. care, half-way, rehab)? @ -[No] Was there de-escalation of care discussed even if they declined (Discuss DNR or withdrawal of care, Hospice)? DNR status @ -[No] What co-morbidities impacted this encounter? (DM, HTN, Smoking, COPD, CAD, Cancer, CVA, ARF, Chemo, Hep., AIDS, mental health diagnosis, sleep apnea, morbid obesity)? @ -[None] Was patient admitted / discharged? Hospital course, mention meds given and route, prescriptions, significant lab abnormalities, going to OR and other pertinent info. @ -[As above, in addition, patient will have nephrology consultation related to acute kidney injury Undiagnosed new problem with uncertain prognosis? @ -[No] Drug Therapy requiring intensive monitoring for toxicity (Heparin, Nitro, Insulin, Cardizem)? @ -[No] Were any procedures done? @ -[No] Diagnosis/symptom? @ -[Acute hyponatremia Acute kidney injury Acute petechial rash Acute, or Chronic, or Acute on Chronic? @ -[Acute Uncomplicated (without systemic symptoms) or Complicated (systemic symptoms)? @ -[Uncomplicated Side effects of treatment? @ -[No] Exacerbation, Progression, or Severe Exacerbation? @ -[No] Poses a threat to life or bodily function? How? (Chest pain, [place], [place], pneumonia, PE, COPD, DKA, ARF, appy, cholecystitis, CVA, Diverticulitis, Homicidal, Suicidal, threat to staff... and all critical care pts) @ -[No] - Lab Data Result diagrams: 05/25/23 05:25 05/26/23 05:33 Lab Results 05/23/23 05/23/23 05/23/23 Range/Units 04:08 04:08 04:08 WBC 8.2 (3.8-10.6) k/uL RBC 3.74 L (4.30-5.90) m/uL Hgb 11.6 L (13.0-17.5) gm/dL Hct 33.5 L (39.0-53.0) % MCV 89.7 (80.0-100.0) fL MCH 30.9 (25.0-35.0) pg MCHC 34.5 (31.0-37.0) g/dL RDW 13.4 (11.5-15.5) % Plt Count 157 (150-450) k/uL MPV 7.9 Neutrophils % 84 % Lymphocytes % 7 % Monocytes % 2 % Eosinophils % 4 % Basophils % 0 % Neutrophils # 6.9 (1.3-7.7) k/uL Lymphocytes # 0.6 L (1.0-4.8) k/uL Monocytes # 0.2 (0-1.0) k/uL Eosinophils # 0.3 (0-0.7) k/uL Basophils # 0.0 (0-0.2) k/uL D-Dimer (<0.60) mg/L FEU Sodium 123 L (137-145) mmol/L Potassium 4.2 (3.5-5.1) mmol/L Chloride 94 L (98-107) mmol/L Carbon Dioxide 15 L (22-30) mmol/L Anion Gap 14 mmol/L BUN 24 H (9-20) mg/dL Creatinine 1.63 H (0.66-1.25) mg/dL Est GFR (CKD-EPI)AfAm 44 (>60 ml/min/1.73 sqM) Est GFR (CKD-EPI)NonAf 38 (>60 ml/min/1.73 sqM) Glucose 102 H (74-99) mg/dL Calcium 8.9 (8.4-10.2) mg/dL Total Bilirubin 0.6 (0.2-1.3) mg/dL AST 65 H (17-59) U/L ALT 110 H (4-49) U/L Alkaline Phosphatase 85 (38-126) U/L C-Reactive Protein 8.9 H (<1.0) mg/dL Total Protein 6.4 (6.3-8.2) g/dL Albumin 3.6 (3.5-5.0) g/dL Influenza Type A (PCR) Not Detected (Not Detectd) Influenza Type B (PCR) Not Detected (Not Detectd) RSV (PCR) Not Detected (Not Detectd) SARS-CoV-2 (PCR) Not Detected (Not Detectd) 05/23/23 Range/Units 04:08 WBC (3.8-10.6) k/uL RBC (4.30-5.90) m/uL Hgb (13.0-17.5) gm/dL Hct (39.0-53.0) % MCV (80.0-100.0) fL MCH (25.0-35.0) pg MCHC (31.0-37.0) g/dL RDW (11.5-15.5) % Plt Count (150-450) k/uL MPV Neutrophils % % Lymphocytes % % Monocytes % % Eosinophils % % Basophils % % Neutrophils # (1.3-7.7) k/uL Lymphocytes # (1.0-4.8) k/uL Monocytes # (0-1.0) k/uL Eosinophils # (0-0.7) k/uL Basophils # (0-0.2) k/uL D-Dimer 4.12 H (<0.60) mg/L FEU Sodium (137-145) mmol/L Potassium (3.5-5.1) mmol/L Chloride (98-107) mmol/L Carbon Dioxide (22-30) mmol/L Anion Gap mmol/L BUN (9-20) mg/dL Creatinine (0.66-1.25) mg/dL Est GFR (CKD-EPI)AfAm (>60 ml/min/1.73 sqM) Est GFR (CKD-EPI)NonAf (>60 ml/min/1.73 sqM) Glucose (74-99) mg/dL Calcium (8.4-10.2) mg/dL Total Bilirubin (0.2-1.3) mg/dL AST (17-59) U/L ALT (4-49) U/L Alkaline Phosphatase (38-126) U/L C-Reactive Protein (<1.0) mg/dL Total Protein (6.3-8.2) g/dL Albumin (3.5-5.0) g/dL Influenza Type A (PCR) (Not Detectd) Influenza Type B (PCR) (Not Detectd) RSV (PCR) (Not Detectd) SARS-CoV-2 (PCR) (Not Detectd) Disposition Clinical Impression: Hyponatremia, HSP (Henoch Schonlein purpura) Disposition: ADMITTED IP TO THIS HOSP Condition: Good
[2023-05-23] MEDS: FAMOTIDINE 20 MG TAB PO SCH (08:59)
[2023-05-23] MEDS: SODIUM CHLORIDE 0.9% 1,000 ML IV SCH ×2 (08:59→20:39)
[2023-05-23] MEDS: HEPARIN SODIUM,PORCINE 5,000 UNIT/ML 1 ML VIAL SQ SCH ×2 (08:59→21:16)
--- NOTE | 2023-05-23 09:03 | CT ---
EXAMINATION TYPE: CT chest angio for PE DATE OF EXAM: 05/23/2023 COMPARISON: None HISTORY: 82-year-old male with shortness of breath, Possible PE TECHNIQUE: Contiguous axial scanning of the chest performed with IV Contrast, patient injected with 8 0 ml mL of Isovue 370. Delayed images through the kidneys were obtained. Coronal/sagittal reconstruct ions performed. CT DLP: 332.8 mGycm Automated exposure control for dose reduction was used. FINDINGS: The heart is normal size without pericardial effusion. No flattening of the interventricular septum r eflux of contrast into the hepatic veins. LAD and circumflex coronary artery calcifications are prese nt. Aorta normal caliber with conventional vessel branching anatomy. Scattered prominent but nonenlarged mediastinal lymph nodes measuring up to 9 mm. Lymph node right hi lar, subcarinal, and lower right paratracheal show some calcifications suggesting prior granulomatous disease. Mildly enlarged caliber to the main right and left pulmonary arteries suggesting underlying pulmonary hypertension. The motion artifacts limiting the evaluation but no definite pulmonary embolus is seen. Prominent atelectasis of the lower lungs due to the patient's large hiatal hernia. Nearly the entire stomach is located within the lower chest. Some scattered interstitial scarring especially in the upp er lungs. No pleural effusion. Visualized upper abdomen shows a 1.2 cm gallstone. Accentuated lower thoracic kyphosis. DISH in the mid and lower thoracic spine. IMPRESSION: 1. BREATHING MOTION ARTIFACT LIMITING THE EVALUATION. HOWEVER, NO DEFINITE PULMONARY EMBOLUS IS SEEN. 2. PULMONARY ARTERIAL HYPERTENSION AND MILD INTERSTITIAL SCARRING IN THE LUNGS. 3. LARGE HIATAL HERNIA WITH ESSENTIALLY THE ENTIRE STOMACH LOCATED WITHIN THE LOWER CHEST. CORRELATE THIS IS SYMPTOMATIC FROM THE PATIENT. 4. A 1.2 CM GALLSTONE. 5. PROMINENT LAD AND CIRCUMFLEX CORONARY ARTERY CALCIFICATIONS.
[2023-05-23 09:17] LABS: Creatinine,Urine Random 28.6 mg/dL
--- NOTE | 2023-05-23 09:37 | US ---
EXAMINATION TYPE: US venous doppler duplex LE DATE OF EXAM: 05/23/2023 8:57 AM COMPARISON: NONE CLINICAL INDICATION: Male, 82 years old with history of swelling, possible DVT; Edema bilateral legs SIDE PERFORMED: bilateral TECHNIQUE: The lower extremity deep venous system is examined utilizing real time linear array sonog aleyda with graded compression, doppler sonography and color-flow sonography. VESSELS IMAGED: Common Femoral Vein Deep Femoral Vein Greater Saphenous Vein * Femoral Vein Popliteal Vein Small Saphenous Vein * Proximal Calf Veins (* superficial vessels) Right Leg: No evidence of DVT Left Leg: No evidence of DVT IMPRESSION: No evidence for DVT within the bilateral lower extremities imaged from the groin to the upper calves.
--- NOTE | 2023-05-23 11:41 | P.HPIM ---
History of Present Illness H&P Date: 05/23/23 Suhail Carreon, is an 82-year-old male who presented to [facility] emergency room with a chief complaint of bilateral lower extremity edema, generalized weakness He was evaluated in the emergency room vital examination on presentation revealed a temperature of 98 pulse 98 respiration 18 blood pressure 91/60 pulse ox 95% on room air Laboratory data revealed a white blood count of 8.2 hemoglobin 11.6 platelet count 157 d-dimer was significantly elevated at 4.12 sodium 123 potassium 4.2 chloride 94 BUN 24 creatinine 1.63 AST 65 ALT 110 Testing in the emergency room revealed CT angiogram of the chest revealed no definite pulmonary embolus, study was however suboptimal, there was evidence of pulmonary arterial hypertension and a large hiatal hernia, there was a 1.2 cm gallstone and prominent LAD and severe complex coronary artery calcifications. Patient was admitted to medical floor for further evaluation and treatment Past medical history is significant for history of hypertension, history of hyperlipidemia, history of gastroesophageal reflux disease, history of left ca rpal tunnel syndrome with surgery, history of benign prostatic hypertrophy, history of benign paroxysmal vertigo, history of vitamin D deficiency, patient stated that in the last few months he had an evaluation at [facility] in regard to dizziness, will try to obtain records. On review of systems patient is alert and oriented 3 in no apparent distress, he is complaining of bilateral lower extremity edema, he is complaining of mild erythema to the lower extremities, he is complaining of generalized weakness, he is complaining of right hand numbness, otherwise he denies any complaints there is no fever or chills no headache or dizziness no chest pain no shortness of breath no cough no nausea or vomiting no abdominal pain no diarrhea no blood in the stools no burning with urination no frequency or urgency and no hematuria. Past Medical History Past Medical History: GERD/Reflux, Hyperlipidemia, Prostate Disorder Additional Past Medical History / Comment(s): Enlarged Prostate, Hx. of Shingles. Hemorrhoids. History of Any Multi-Drug Resistant Organisms: None Reported Past Surgical History: Appendectomy, Orthopedic Surgery Additional Past Surgical History / Comment(s): Colonoscopy. Back surgery in the past. prostate surgery Past Anesthesia/Blood Transfusion Reactions: No Reported Reaction Past Psychological History: No Psychological Hx Reported Smoking Status: Never smoker Past Alcohol Use History: Occasional Past Drug Use History: None Reported - Past Family History Mother Family Medical History: No Reported History Sister(s) Family Medical History: Cancer Additional Family Medical History / Comment(s): Lung Medications and Allergies Home Medications Medication Instructions Recorded Confirmed Type Pantoprazole Sodium 40 mg PO DAILY 12/07/16 08/03/19 History Simvastatin [Zocor] 20 mg PO DAILY 12/07/16 08/03/19 History Aspirin [Adult Low Dose Aspirin EC] 81 mg PO DAILY PRN 01/05/17 07/31/19 History Benazepril/Hydrochlorothiazide 1 each PO HS 01/05/17 08/03/19 History [Benazepril-Hctz 20-12.5 mg Tab] Cholecalciferol [Vitamin D3] 2,000 unit PO DAILY 01/05/17 08/03/19 History Multivitamin [Men's Multi-Vitamin] 1 each PO DAILY 01/05/17 08/03/19 History Henderson-3/Dha/Epa/Fish Oil [Fish Oil 1 each PO TID 01/05/17 08/03/19 History 500 mg Softgel] Akldy-Jg-Leew (Unknown Dose) 1 tab PO DAILY 01/05/17 08/03/19 History Tamsulosin [Flomax] 0.4 mg PO DAILY 01/05/17 08/03/19 History Sulfamethox-Tmp 800-160Mg [Bactrim 1 tab PO Q12HR 7 Days #14 tab 05/14/23 Rx DS 800-160 mg] Allergies Allergy/AdvReac Type Severity Reaction Status Date / Time No Known Allergies Allergy Verified 04/01/23 15:51 Physical Exam Vitals: Vital Signs Temp Pulse Resp BP Pulse Ox 05/23/23 08:57 73 18 133/82 97 05/23/23 08:39 18 05/23/23 07:32 82 18 121/71 98 05/23/23 03:05 98 F 98 18 91/60 95 Intake and Output 05/22/23 05/23/23 05/23/23 22:59 06:59 14:59 Other: Weight 80.739 kg In general patient is alert and oriented x 3 in no distress HEENT head normocephalic and atraumatic Neck is supple no JVD no goiter no lymphadenopathy no carotid bruit Chest examination is clear to auscultation no crackles no wheezing Cardiac exam reveals regular heart sounds S1 and S2 no gallops no murmurs Abdomen is soft nontender no organomegaly with normal bowel sounds Extremity exam reveals 2+ edema no cyanosis or clubbing Neurological examination reveals no gross focal deficits Results CBC & Chem 7: 05/23/23 04:08 05/23/23 04:08 Labs: Abnormal Lab Results - Last 24 Hours (Table) 05/23/23 05/23/23 05/23/23 Range/Units 04:08 04:08 04:08 RBC 3.74 L (4.30-5.90) m/uL Hgb 11.6 L (13.0-17.5) gm/dL Hct 33.5 L (39.0-53.0) % Lymphocytes # 0.6 L (1.0-4.8) k/uL D-Dimer 4.12 H (<0.60) mg/L FEU Sodium 123 L (137-145) mmol/L Chloride 94 L (98-107) mmol/L Carbon Dioxide 15 L (22-30) mmol/L BUN 24 H (9-20) mg/dL Creatinine 1.63 H (0.66-1.25) mg/dL Glucose 102 H (74-99) mg/dL AST 65 H (17-59) U/L ALT 110 H (4-49) U/L C-Reactive Protein 8.9 H (<1.0) mg/dL Urine Blood (Negative) Urine RBC (0-5) /hpf 05/23/23 Range/Units 08:04 RBC (4.30-5.90) m/uL Hgb (13.0-17.5) gm/dL Hct (39.0-53.0) % Lymphocytes # (1.0-4.8) k/uL D-Dimer (<0.60) mg/L FEU Sodium (137-145) mmol/L Chloride (98-107) mmol/L Carbon Dioxide (22-30) mmol/L BUN (9-20) mg/dL Creatinine (0.66-1.25) mg/dL Glucose (74-99) mg/dL AST (17-59) U/L ALT (4-49) U/L C-Reactive Protein (<1.0) mg/dL Urine Blood Moderate H (Negative) Urine RBC 30 H (0-5) /hpf Assessment and Plan Plan: Severe hyponatremia, patient was on low-dose of hydrochlorothiazide, will discontinue at this time, he was started on IV normal saline, will monitor sodium closely Bilateral lower extremity swelling, no evidence of DVT bilaterally Elevated d-dimer cause is not clear, no evidence of DVT or PE at this time, C OVID-19 testing is negative. Underlying history of hypertension, blood pressure is on the low side at this time will hold Benazepril with hydrochlorothiazide and monitor closely Underlying history of hyperlipidemia maintained on simvastatin Underlying history of benign prostatic hypertrophy Underlying history of gastroesophageal reflux disease Evidence of large hiatal hernia, with entire stomach in the chest cavity At this time patient will be admitted to medical floor Home medications reviewed and reordered Will hold Benazepril /HCT Will check echocardiogram and consult cardiology due to evidence of pulmonary hypertension For DVT prophylaxis subcu heparin Will recheck labs in a.m. and follow closely.
--- NOTE | 2023-05-23 12:43 | P.NPCON ---
History of Present Illness - Reason for Consult acute renal failure, hyponatremia - History of Present Illness Reason for consultation: Hyponatremia and acute kidney injury History of present illness: Patient is a 82-year-old male seen in renal consultation for acute kidney injury and hyponatremia. Patient's baseline creatinine is near 1 and elevated at 1.63 this admission. Sodium level was low at 123. Patient came to the hospital due to erythematous rash on his lower extremities as well as numbness in his hands. Patient states the last few days his appetite has been poor. He does admit to drinking 4-5 bottles of water daily along with 1 cup of coffee. Patient states he was having urinary retention and underwent intervention by urology couple weeks ago. He had a Simms catheter prior to surgery and then again required catheter for a few days after the surgery. He currently doesn't have a Simms catheter and has been urinating on his own. He denies gross hematuria at this time. He was taking CARLITOS inhibitor as well as hydrochlorothiazide outpatient. Additionally patient has been on Bactrim for the last 2 weeks due to UTI. He denies personal or family history of kidney disease. UA shows no proteinuria. He denies chest pain or shortness of breath. Blood pressure upon admission was low in the systolic 90s and he did receive 2 L of normal saline. He's currently receiving normal saline at 75 mL an hour. Vital signs are stable. General: No acute distress. HEENT: Head exam is unremarkable. LUNGS: No audible rhonchi or wheezes. HEART: Rate and Rhythm are regular. ABDOMEN: Nontender. EXTREMITITES: Erythematous rash noted. Past Medical History Past Medical History: GERD/Reflux, Hyperlipidemia, Prostate Disorder Additional Past Medical History / Comment(s): Enlarged Prostate, Hx. of Shingles. Hemorrhoids. History of Any Multi-Drug Resistant Organisms: None Reported Past Surgical History: Appendectomy, Orthopedic Surgery Additional Past Surgical History / Comment(s): Colonoscopy. Back surgery in the past. prostate surgery Past Anesthesia/Blood Transfusion Reactions: No Reported Reaction Past Psychological History: No Psychological Hx Reported Smoking Status: Never smoker Past Alcohol Use History: Occasional Past Drug Use History: None Reported - Past Family History Mother Family Medical History: No Reported History Sister(s) Family Medical History: Cancer Additional Family Medical History / Comment(s): Lung Medications and Allergies Home Medications Medication Instructions Recorded Confirmed Type Pantoprazole Sodium 40 mg PO DAILY 12/07/16 05/23/23 History Simvastatin [Zocor] 20 mg PO DAILY 12/07/16 05/23/23 History Aspirin [Adult Low Dose Aspirin EC] 81 mg PO DAILY PRN 01/05/17 05/23/23 History Benazepril/Hydrochlorothiazide 1 tab PO DAILY 01/05/17 05/23/23 History [Benazepril-Hctz 20-12.5 mg Tab] Sulfamethox-Tmp 800-160Mg [Bactrim 1 tab PO Q12HR 7 Days #14 tab 05/14/23 05/23/23 Rx DS 800-160 mg] Cholecalciferol [Vitamin D3 (25 50 mcg PO DAILY 05/23/23 05/23/23 History Mcg = 1000 Iu)] Fish Oil/Dha/Epa [Fish Oil 1,200 3 cap PO DAILY 05/23/23 05/23/23 History mg Fish Oil] Garlic 2,000 mg PO DAILY 05/23/23 05/23/23 History Allergies Allergy/AdvReac Type Severity Reaction Status Date / Time No Known Allergies Allergy Verified 05/23/23 12:01 Physical Exam Vitals: Vital Signs Temp Pulse Resp BP Pulse Ox 05/23/23 11:25 84 18 117/80 97 05/23/23 08:57 73 18 133/82 97 05/23/23 08:39 18 05/23/23 07:32 82 18 121/71 98 05/23/23 03:05 98 F 98 18 91/60 95 Intake and Output 05/22/23 05/23/23 05/23/23 22:59 06:59 14:59 Other: Weight 80.739 kg Results - Lab Results Most recent lab results Calcium 8.9 mg/dL (8.4-10.2) 05/23/23 04:08 05/23/23 04:08 05/23/23 04:08 Assessment and Plan Plan: Assessment: 1. Acute kidney injury secondary to vasomotor nephropathy secondary to hypovolemia and further worsened with the use of CARLITOS inhibitor and diuretic. Bactrim can further impair creatinine secretion. Also received IV contrast for CTA on 05/23/2023 that showed no PE. Creatinine 1.63 on admission. Baseline creatinine near 1. Rule out urinary retention. No proteinuria on UA. 2. Hypovolemic hyponatremia further worsened with the use of thiazide diuretic and poor solute intake. Urine osmolality 250. 3. Metabolic acidosis secondary to acute kidney injury and IV fluids. 4. BPH with urinary retention status post urologic intervention recently. 5. Benign hypertension. Controlled. 6. Lower extremity rash. Possibly from Bactrim. No evidence of DVT. Plan: Maintain normal saline. Hold antihypertensives. Check BMP and magnesium level now. Check CEM, hep panel and ANCA titers. Avoid Bactrim. Check urine eosinophils. Follow-up urine sodium level. Check TSH level. Check bladder scan to rule out urinary retention. Check renal ultrasound. Follow-up echocardiogram. Thank you for the consultation. I will continue to follow the patient with you during his hospital stay.
[2023-05-23 13:17] LABS: African American GFR (CKD) 59 (>60 ml/min/1.73 sqM); Anion Gap 12 mmol/L; Blood Urea Nitrogen 19 mg/dL (9-20); Calcium 8.4 mg/dL (8.4-10.2); Carbon Dioxide 17 mmol/L (22-30); Chloride 97 mmol/L (98-107); Glucose 151 mg/dL (74-99); Magnesium 1.2 mg/dL (1.6-2.3); Non-African American GFR(CKD) 51 (>60 ml/min/1.73 sqM); Potassium 4.1 mmol/L (3.5-5.1); Sodium 126 mmol/L (137-145)
--- NOTE | 2023-05-23 13:45 | US ---
EXAMINATION TYPE: US kidneys/renal and bladder DATE OF EXAM: 05/23/2023 COMPARISON: NONE CLINICAL INDICATION: Male, 82 years old with history of acute kidney injury; EXAM MEASUREMENTS: Right Kidney: 12.8 x 5.2 x 4.5 cm Left Kidney: 11.3 x 5.0 x 4.2 cm Right Kidney: no evidence of hydronephrosis Left Kidney: no evidence of hydronephrosis Bladder: 2 cm posterior bladder wall diverticulum. Bilateral Jets seen: no Incidental finding: gallstone = 2.0cm IMPRESSION: 1. No hydronephrosis. 2. Incidental 2 cm posterior bladder wall diverticulum.
[2023-05-23] MEDS: ACETAMINOPHEN TAB 325 MG TAB PO PRN ×2 (15:00→21:18)
[2023-05-23] MEDS: MAGNESIUM SULFATE-D5W PMX 1 GM in DEXTROSE/WATER 1 100ML.BAG IVPB SCH ×3 (16:03→19:07)
[2023-05-23 20:10] LABS: Potassium,Urine Random 7.3 mmol/L (25.0-125.0)
[2023-05-24] MEDS: ACETAMINOPHEN TAB 325 MG TAB PO PRN ×3 (03:21→21:09)
[2023-05-24 07:11] LABS: Hepatitis A Antibody IgM Nonreactive; Hepatitis B Core IgM Nonreactive; Hepatitis B Surface Antigen Nonreactive; Hepatitis C IgG Antibody Nonreactive
[2023-05-24 09:10] LABS: HCT 30.7 % (39.6-50.0); HGB 10.6 g/dL (13.0-17.0); MCH 30.2 pg (27.0-32.0); MCHC 34.5 g/dL (32.0-37.0); MCV 87.5 FL (80.0-97.0); Mean Platelet Volume 10.3 FL (9.5-12.2); NRBC Per 100 WBC 0 X 10*3/uL (0.00-0.01); Platelet Count 137 X 10*3/uL (140-440); RBC 3.51 X 10*6/uL (4.40-5.60); RDW 14.2 % (11.5-14.5); WBC 7.91 X 10*3/uL (4.50-10.00)
[2023-05-24 09:22] LABS: ALT 86 U/L (10-49); AST 44 U/L (14-35); Albumin 3.3 g/dL (3.8-4.9); Albumin/Globulin Ratio 1.38 Ratio (1.60-3.17); Alkaline Phosphatase 68 U/L (41-126); BUN/Creat Ratio 13.36 Ratio (12.00-20.00); Blood Urea Nitrogen 14.7 mg/dL (9.0-27.0); Calcium 8.2 mg/dL (8.7-10.3); Carbon Dioxide 17.5 mmol/L (21.6-31.8); Chloride 98 mmol/L (96-109); Globulin 2.4 g/dL (1.6-3.3); Glucose 107 mg/dL (70-110); Magnesium 1.9 mg/dL (1.5-2.4); Potassium 3.7 mmol/L (3.5-5.5); Sodium 128 mmol/L (135-145); Total Bilirubin 0.3 mg/dL (0.3-1.2); Total Protein 5.7 g/dL (6.2-8.2)
[2023-05-24 10:00] LABS: Basophils # (A) 0.03 X 10*3/uL (0.00-0.10); Basophils % (A) 0.4 %; Crenated RBC 2+; Elliptocytes 2+; Eosinophils # (A) 0.47 X 10*3/uL (0.04-0.35); Eosinophils % (A) 5.9 %; Lymphocytes # (A) 0.76 X 10*3/uL (0.90-5.00); Lymphocytes % (A) 9.6 %; Monocytes # (A) 0.37 X 10*3/uL (0.20-1.00); Monocytes % (A) 4.7 %; Neutrophils # (A) 6.22 X 10*3/uL (1.80-7.70); Neutrophils % (A) 78.6 %
[2023-05-24] MEDS: FAMOTIDINE 20 MG TAB PO SCH (10:15)
[2023-05-24] MEDS: HEPARIN SODIUM,PORCINE 5,000 UNIT/ML 1 ML VIAL SQ SCH ×2 (10:15→21:05)
[2023-05-24] MEDS: SODIUM CHLORIDE 0.9% 1,000 ML IV SCH (10:15)
--- NOTE | 2023-05-24 11:04 | P.PN ---
Subjective Patient is seen in follow-up for acute kidney injury and hyponatremia. Sodium level improved to 128. Renal function also improved. Denies chest pain or shortness of breath. Has been voiding. Vital signs are stable. General: No acute distress. HEENT: Head exam is unremarkable. LUNGS: No audible rhonchi or wheezes. HEART: Rate and Rhythm are regular. ABDOMEN: Nontender. EXTREMITITES: No edema. Objective - Vital Signs Vital signs: Vital Signs Temp 98.2 F 05/24/23 07:07 Pulse 72 05/24/23 07:07 Resp 16 05/24/23 07:07 BP 111/57 05/24/23 07:07 Pulse Ox 93 L 05/24/23 07:07 FiO2 Intake & Output 05/23/23 05/24/23 05/24/23 18:59 06:59 18:59 Weight 80.739 kg Other: # Voids 1 - Labs CBC & Chem 7: 05/24/23 05:18 05/24/23 05:18 Labs: Abnormal Lab Results - Last 24 Hours (Table) 05/23/23 05/23/23 05/23/23 Range/Units 08:04 12:51 12:51 RBC (4.40-5.60) X 10*6/uL Hgb (13.0-17.0) g/dL Hct (39.6-50.0) % Plt Count (140-440) X 10*3/uL Immature Gran # (0.00-0.04) X 10*3/uL Lymphocytes # (0.90-5.00) X 10*3/uL Eosinophils # (0.04-0.35) X 10*3/uL Crenated Cell Elliptocytes Sodium 126 L (137-145) mmol/L Chloride 97 L (98-107) mmol/L Carbon Dioxide 17 L (22-30) mmol/L Anion Gap (4.00-12.00) mmol/L Creatinine 1.30 H (0.66-1.25) mg/dL Glucose 151 H (74-99) mg/dL Osmolality 267 L (280-301) mosm/kg Calcium (8.7-10.3) mg/dL Magnesium 1.2 L (1.6-2.3) mg/dL AST (14-35) U/L ALT (10-49) U/L Total Protein (6.2-8.2) g/dL Albumin (3.8-4.9) g/dL Albumin/Globulin Ratio (1.60-3.17) Ratio Ur Random Potassium 7.3 L (25.0-125.0) mmol/L 05/23/23 05/24/23 05/24/23 Range/Units 18:42 05:18 05:18 RBC 3.51 L (4.40-5.60) X 10*6/uL Hgb 10.6 L (13.0-17.0) g/dL Hct 30.7 L (39.6-50.0) % Plt Count 137 L (140-440) X 10*3/uL Immature Gran # 0.06 H (0.00-0.04) X 10*3/uL Lymphocytes # 0.76 L (0.90-5.00) X 10*3/uL Eosinophils # 0.47 H (0.04-0.35) X 10*3/uL Crenated Cell 2+ A Elliptocytes 2+ A Sodium 126 L 128 L (137-145) mmol/L Chloride (98-107) mmol/L Carbon Dioxide 17.5 L (22-30) mmol/L Anion Gap 12.50 H (4.00-12.00) mmol/L Creatinine (0.66-1.25) mg/dL Glucose (74-99) mg/dL Osmolality (280-301) mosm/kg Calcium 8.2 L (8.7-10.3) mg/dL Magnesium (1.6-2.3) mg/dL AST 44 H (14-35) U/L ALT 86 H (10-49) U/L Total Protein 5.7 L (6.2-8.2) g/dL Albumin 3.3 L (3.8-4.9) g/dL Albumin/Globulin Ratio 1.38 L (1.60-3.17) Ratio Ur Random Potassium (25.0-125.0) mmol/L Assessment and Plan Plan: Assessment: 1. Acute kidney injury secondary to vasomotor nephropathy secondary to hypo volemia and further worsened with the use of CARLITOS inhibitor and diuretic. Bactrim can further impair creatinine secretion. Also received IV contrast for CTA on 05/23/2023 that showed no PE. Creatinine 1.63 on admission - 1.1 today. Baseline creatinine near 1. No proteinuria on UA. urine eosinophils mildly positive at 2%. No hydronephrosis noted on kidney ultrasound. 2. Hypovolemic hyponatremia further worsened with the use of thiazide diuretic and poor solute intake. Urine osmolality 250. Urine sodium 54. TSH normal. 3. Metabolic acidosis secondary to acute kidney injury and IV fluids. 4. BPH with urinary retention status post urologic intervention recently. 5. Benign hypertension. Controlled. 6. Lower extremity rash. Possibly from Bactrim. No evidence of DVT. Hepatitis panel negative. 7. Hypomagnesemia from poor intake and diuretic use. Replaced. Improved. Plan: Maintain normal saline. Encouraged oral intake. Maintain 1500 mL fluid restriction. Hold antihypertensives. Follow-up CEM, hep panel and ANCA titers. Avoid Bactrim. Urine eosinophils mildly positive at 2% - can be from bactrim which is now held. Follow-up echocardiogram. Repeat labs in the morning. Add oral bicarb.
[2023-05-24] MEDS: SODIUM BICARBONATE TAB 650 MG TAB PO SCH ×2 (11:39→21:05)
[2023-05-24] MEDS ORDERED: ASPIRIN 81 MG PO PRN (11:45)
--- NOTE | 2023-05-24 11:46 | P.CRDCN ---
History of Present Illness Consult date: 05/24/23 Reason for Consult (text): dyspnea History of present illness: History of present illness: This is an 82 year old male patient of Dr. Ann Michelle with past medical history of hypertension, hyperlipidemia, palpitations, shortness of breath. We have been asked to evaluate the patient for dyspnea. Patient states he came into the hospital because he could not feel his fingers and had finger pain. Patient is noted to have rash on bilateral lower extremities that he states is been going on for about one week. He denies any itching to this. Friend at the bedside said the rash started when he had his Simms catheter removed about one week ago. Patient denies any abdominal pain. He is not eating very much and has decreased appetite. He noticed lower extremity edema because his socks were tight when he changes them. Patient denies having any chest pain at this time. CTA of the chest revealed no definite pulmonary embolus. Pulmonary artery hypertension and mild interstitial scarring of the lungs. Gallstone. LAD and circumflex coronary artery calcifications. Ultrasound of bilateral lower extremities negative for DVT. WBC 7.9, hemoglobin 10.6, platelet count 137. Sodium 138, potassium 3.7, BUN 14, creatinine 1.1. CO2 17. Magnesium 1.9. AST 44, ALT 86, alkaline phosphatase 68. TSH 3.63. Home cardiac medications: Aspirin 81 mg daily as needed, benazeprilhydrochlorothiazide 2012.5 mg daily, simvastatin 20 mg daily. Lexiscan stress test performed in the office 11/03/2022, negative stress test, normal myocardial perfusion and function. Echocardiogram performed 10/30/2022 in the office revealed EF 55%. Mild concentric left ventricular hypertrophy. Mild aortic regurgitation. Oacy-ad-tegyifcx mitral regurgitation. Mild tricuspid regurgitation. PAS P 37 mmHg. Review Of Systems: At the time of my exam: CONSTITUTIONAL: Denies fever or chills. CARDIOVASCULAR: Denies chest pain, Denies shortness of breath, no orthopnea, PND or palpitations. RESPIRATORY: Denies cough. GASTROINTESTINAL: Denies abdominal pain, diarrhea, constipation, nausea or vomiting. MUSCULOSKELETAL: Denies myalgias. NEUROLOGIC: Denies numbness, tingling or weakness. ENDOCRINE: Denies fatigue, weight change, polydipsia or polyurina. GENITOURINARY: Denies burning, hematuria or urgency with micturation. HEMATOLOGIC: Denies history of anemia or bleeding. Physical examination: Gen: This is an 82-year-old male. He appears to be in no respiratory distress. VS: reviewed HEENT: Head is atraumatic, normocephalic. Pupils equal, round. Sclerae is anicteric. NECK: Supple. No JVD. LUNGS: Clear to auscultation. No wheezes or rhonchi. No intercostal retractions. HEART: Regular rate and rhythm. No murmur. ABDOMEN: Soft No tenderness. EXTREMITIES: 2+ pedal edema. Petechial rash to the legs. NEUROLOGICAL: Patient is awake, alert and oriented x3. Assessment: Dyspnea Volume overload Acute kidney injury Hyponatremia Petechiae rash on the legs Thrombocytopenia, anemia Plan: Continue patient's current cardiac medications (benazepril/hydrochlorothiazide on hold) Nephrology is managing acute kidney injury and hyponatremia Attending to address rash Obtain 2-D echocardiogram and Doppler study to assess cardiac structure and fu nction Further recommendations to follow based upon clinical course Thank you kindly for this consultation. Nurse practitioner note has been reviewed, I agree with documented findings and plan of care. Patient was seen and examined. Past Medical History Past Medical History: GERD/Reflux, Hyperlipidemia, Prostate Disorder Additional Past Medical History / Comment(s): Enlarged Prostate, Hx. of Shingles. Hemorrhoids. History of Any Multi-Drug Resistant Organisms: None Reported Past Surgical History: Appendectomy, Orthopedic Surgery Additional Past Surgical History / Comment(s): Colonoscopy. Back surgery in the past. prostate surgery, hemorrhoid surgery Past Anesthesia/Blood Transfusion Reactions: No Reported Reaction Past Psychological History: No Psychological Hx Reported Smoking Status: Never smoker Past Alcohol Use History: Occasional Past Drug Use History: None Reported - Past Family History Mother Family Medical History: No Reported History Sister(s) Family Medical History: Cancer Additional Family Medical History / Comment(s): Lung Medications and Allergies Home Medications Medication Instructions Recorded Confirmed Type Pantoprazole Sodium 40 mg PO DAILY 12/07/16 05/23/23 History Simvastatin [Zocor] 20 mg PO DAILY 12/07/16 05/23/23 History Aspirin [Adult Low Dose Aspirin EC] 81 mg PO DAILY PRN 01/05/17 05/23/23 History Benazepril/Hydrochlorothiazide 1 tab PO DAILY 01/05/17 05/23/23 History [Benazepril-Hctz 20-12.5 mg Tab] Sulfamethox-Tmp 800-160Mg [Bactrim 1 tab PO Q12HR 7 Days #14 tab 05/14/23 05/23/23 Rx DS 800-160 mg] Cholecalciferol [Vitamin D3 (25 50 mcg PO DAILY 05/23/23 05/23/23 History Mcg = 1000 Iu)] Fish Oil/Dha/Epa [Fish Oil 1,200 3 cap PO DAILY 05/23/23 05/23/23 History mg Fish Oil] Garlic 2,000 mg PO DAILY 05/23/23 05/23/23 History Allergies Allergy/AdvReac Type Severity Reaction Status Date / Time No Known Allergies Allergy Verified 05/23/23 12:01 Physical Exam Vitals: Vital Signs Temp Pulse Pulse Resp BP BP Pulse Ox 05/24/23 07:07 98.2 F 72 16 111/57 93 L 05/24/23 02:00 98 F 76 124/73 96 05/23/23 23:10 97.4 F L 77 129/76 96 05/23/23 22:34 84 18 140/82 98 05/23/23 20:56 98.3 F 74 18 133/83 95 05/23/23 19:02 74 18 112/69 95 05/23/23 17:32 98.2 F 85 18 117/76 95 05/23/23 14:56 99.7 F H 87 18 120/68 95 05/23/23 11:25 84 18 117/80 97 Intake and Output 05/23/23 05/24/23 05/24/23 22:59 06:59 14:59 Other: # Voids 1 Weight 80.739 kg Results 05/24/23 05:18 05/24/23 05:18 Cardiac Enzymes 05/24/23 Range/Units 05:18 AST 44 H (14-35) U/L CBC 05/24/23 Range/Units 05:18 WBC 7.91 (4.50-10.00) X 10*3/uL RBC 3.51 L (4.40-5.60) X 10*6/uL Hgb 10.6 L (13.0-17.0) g/dL Hct 30.7 L (39.6-50.0) % Plt Count 137 L (140-440) X 10*3/uL Comprehensive Metabolic Panel 05/23/23 05/23/23 05/24/23 Range/Units 12:51 18:42 05:18 Sodium 126 L 126 L 128 L (137-145) mmol/L Potassium 4.1 3.7 (3.5-5.1) mmol/L Chloride 97 L 98 (98-107) mmol/L Carbon Dioxide 17 L 17.5 L (22-30) mmol/L BUN 19 14.7 (9-20) mg/dL Creatinine 1.30 H 1.1 (0.66-1.25) mg/dL Glucose 151 H 107 (74-99) mg/dL Calcium 8.4 8.2 L (8.4-10.2) mg/dL AST 44 H (14-35) U/L ALT 86 H (10-49) U/L Alkaline Phosphatase 68 (41-126) U/L Total Protein 5.7 L (6.2-8.2) g/dL Albumin 3.3 L (3.8-4.9) g/dL Current Medications Generic Name Dose Route Start Last Admin Trade Name Freq PRN Reason Stop Dose Admin Acetaminophen 650 mg 05/23/23 07:49 05/24/23 03:21 Acetaminophen Tab 325 Mg Tab PO 650 mg Q6HR PRN Administration Mild Pain or Fever > 100.5 Al Hydroxide/Mg Hydroxide 15 ml 05/23/23 07:49 Mag Hydrox/Al Hydrox/Simeth 30 Ml Cup PO Q6HR PRN Indigestion Famotidine 20 mg 05/23/23 09:00 05/23/23 08:59 Famotidine 20 Mg Tab PO 20 mg DAILY ADILIA Administration Heparin Sodium (Porcine) 5,000 unit 05/23/23 09:00 05/23/23 21:16 Heparin Sodium,Porcine 5,000 Unit/Ml 1 Ml Vial SQ 5,000 unit Q12HR ADILIA Administration Sodium Chloride 1,000 mls @ 75 mls/hr 05/23/23 08:00 05/23/23 20:39 Saline 0.9% IV 75 mls/hr .[id number] ADILIA Administration Naloxone HCl 0.2 mg 05/23/23 07:49 Naloxone 0.4 Mg/Ml 1 Ml Vial IV Q2M PRN Opioid Reversal Intake and Output 05/23/23 05/24/2323 22:59 06:59 14:59 Other: # Voids 1 Weight 80.739 kg 05/24/23 05:18 05/24/23 05:18
--- NOTE | 2023-05-24 13:20 | XR ---
EXAMINATION TYPE: XR chest 1V DATE OF EXAM: 05/24/2023 COMPARISON: NONE HISTORY: SOB TECHNIQUE: Single frontal view of the chest is obtained. FINDINGS: There is no focal air space opacity, pleural effusion, or pneumothorax seen. The cardiac silhouette size is within normal limits. The osseous structures are intact. Large hiatal hernia. D iffuse COPD. Atherosclerotic change aorta. IMPRESSION: No acute process.
--- NOTE | 2023-05-24 16:44 | P.PN ---
Subjective Progress Note Date: 05/24/23 Suhail Carreon, is an 82-year-old male who presented to [facility] emergency room with a chief complaint of bilateral lower extremity edema, generalized weakness He was evaluated in the emergency room vital examination on presentation revealed a temperature of 98 pulse 98 respiration 18 blood pressure 91/60 pulse ox 95% on room air Laboratory data revealed a white blood count of 8.2 hemoglobin 11.6 platelet count 157 d-dimer was significantly elevated at 4.12 sodium 123 potassium 4.2 chloride 94 BUN 24 creatinine 1.63 AST 65 ALT 110 Testing in the emergency room revealed CT angiogram of the chest revealed no definite pulmonary embolus, study was however suboptimal, there was evidence of pulmonary arterial hypertension and a large hiatal hernia, there was a 1.2 cm gallstone and prominent LAD and severe complex coronary artery calcifications. Patient was admitted to medical floor for further evaluation and treatment Past medical history is significant for history of hypertension, history of hyperlipidemia, history of gastroesophageal reflux disease, history of left carpal tunnel syndrome with surgery, history of benign prostatic hypertrophy, history of benign paroxysmal vertigo, history of vitamin D deficiency, patient stated that in the last few months he had an evaluation at [facility] in regard to dizziness, will try to obtain records. On review of systems patient is alert and oriented 3 in no apparent distress, he is complaining of bilateral lower extremity edema, he is complaining of mild erythema to the lower extremities, he is complaining of generalized weakness, he is complaining of right hand numbness, otherwise he denies any complaints there is no fever or chills no headache or dizziness no chest pain no shortness of breath no cough no nausea or vomiting no abdominal pain no diarrhea no blood in the stools no burning with urination no frequency or urgency and no hematuria. On 05/24/2023 patient was seen and examined on the medical floor he is alert and oriented 3 in no apparent distress, he is feeling better weakness is improving vital exam reveals a temperature of 98.1 pulse 87 respiration 20 blood pressure 117/65 pulse ox 93% on room air electrolytes are improving sodium is up to 128, will continue was current management will recheck labs in a.m. Objective - Vital Signs Vital signs: Vital Signs Temp 98.2 F 05/24/23 07:07 Pulse 72 05/24/23 07:07 Resp 16 05/24/23 07:07 BP 111/57 12/11/23 07:07 Pulse Ox 93 L 05/24/23 07:07 FiO2 Intake & Output 05/23/23 05/24/23 05/24/23 18:59 06:59 18:59 Weight 80.739 kg Other: # Voids 1 - Exam In general patient is alert and oriented x 3 in no distress HEENT head normocephalic and atraumatic Neck is supple no JVD no goiter no lymphadenopathy no carotid bruit Chest examination is clear to auscultation no crackles no wheezing Cardiac exam reveals regular heart sounds S1 and S2 no gallops no murmurs Abdomen is soft nontender no organomegaly with normal bowel sounds Extremity exam reveals 2+ edema no cyanosis or clubbing Neurological examination reveals no gross focal deficits - Labs CBC & Chem 7: 05/24/23 05:18 05/24/23 05:18 Labs: Abnormal Lab Results - Last 24 Hours (Table) 05/23/23 05/23/23 05/23/23 Range/Units 08:04 12:51 12:51 RBC (4.40-5.60) X 10*6/uL Hgb (13.0-17.0) g/dL Hct (39.6-50.0) % Plt Count (140-440) X 10*3/uL Immature Gran # (0.00-0.04) X 10*3/uL Lymphocytes # (0.90-5.00) X 10*3/uL Eosinophils # (0.04-0.35) X 10*3/uL Crenated Cell Elliptocytes Sodium 126 L (137-145) mmol/L Chloride 97 L (98-107) mmol/L Carbon Dioxide 17 L (22-30) mmol/L Anion Gap (4.00-12.00) mmol/L Creatinine 1.30 H (0.66-1.25) mg/dL Glucose 151 H (74-99) mg/dL Osmolality 267 L (280-301) mosm/kg Calcium (8.7-10.3) mg/dL Magnesium 1.2 L (1.6-2.3) mg/dL AST (14-35) U/L ALT (10-49) U/L Total Protein (6.2-8.2) g/dL Albumin (3.8-4.9) g/dL Albumin/Globulin Ratio (1.60-3.17) Ratio Ur Random Potassium 7.3 L (25.0-125.0) mmol/L 05/23/23 05/24/23 05/24/23 Range/Units 18:42 05:18 05:18 RBC 3.51 L (4.40-5.60) X 10*6/uL Hgb 10.6 L (13.0-17.0) g/dL Hct 30.7 L (39.6-50.0) % Plt Count 137 L (140-440) X 10*3/uL Immature Gran # 0.06 H (0.00-0.04) X 10*3/uL Lymphocytes # 0.76 L (0.90-5.00) X 10*3/uL Eosinophils # 0.47 H (0.04-0.35) X 10*3/uL Crenated Cell 2+ A Elliptocytes 2+ A Sodium 126 L 128 L (137-145) mmol/L Chloride (98-107) mmol/L Carbon Dioxide 17.5 L (22-30) mmol/L Anion Gap 12.50 H (4.00-12.00) mmol/L Creatinine (0.66-1.25) mg/dL Glucose (74-99) mg/dL Osmolality (280-301) mosm/kg Calcium 8.2 L (8.7-10.3) mg/dL Magnesium (1.6-2.3) mg/dL AST 44 H (14-35) U/L ALT 86 H (10-49) U/L Total Protein 5.7 L (6.2-8.2) g/dL Albumin 3.3 L (3.8-4.9) g/dL Albumin/Globulin Ratio 1.38 L (1.60-3.17) Ratio Ur Random Potassium (25.0-125.0) mmol/L Assessment and Plan Plan: Severe hyponatremia, patient was on low-dose of hydrochlorothiazide, will discontinue at this time, he was started on IV normal saline, will monitor sodium closely Bilateral lower extremity swelling, no evidence of DVT bilaterally Elevated d-dimer cause is not clear, no evidence of DVT or PE at this time, COVID-19 testing is negative. Underlying history of hypertension, blood pressure is on the low side at this time will hold Benazepril with hydrochlorothiazide and monitor closely Underlying history of hyperlipidemia maintained on simvastatin Underlying history of benign prostatic hypertrophy Underlying history of gastroesophageal reflux disease Evidence of large hiatal hernia, with entire stomach in the chest cavity At this time patient will be admitted to medical floor Home medications reviewed and reordered Will hold Benazepril /HCT Will check echocardiogram and consult cardiology due to evidence of pulmonary hypertension For DVT prophylaxis subcu heparin Will recheck labs in a.m. and follow closely.
[2023-05-25] MEDS: ACETAMINOPHEN TAB 325 MG TAB PO PRN ×3 (03:48→20:46)
[2023-05-25] MEDS: SODIUM CHLORIDE 0.9% 1,000 ML IV SCH ×2 (07:39→09:15)
[2023-05-25 08:56] LABS: HCT 28.5 % (39.6-50.0); HGB 9.9 g/dL (13.0-17.0); MCHC 34.7 g/dL (32.0-37.0); MCV 89.3 FL (80.0-97.0); Mean Platelet Volume 10.3 FL (9.5-12.2); NRBC Per 100 WBC 0 X 10*3/uL (0.00-0.01); Platelet Count 167 X 10*3/uL (140-440); RBC 3.19 X 10*6/uL (4.40-5.60); RDW 14.2 % (11.5-14.5); WBC 7.69 X 10*3/uL (4.50-10.00)
[2023-05-25 09:04] LABS: ALT 63 U/L (10-49); AST 27 U/L (14-35); Albumin 3.1 g/dL (3.8-4.9); Albumin/Globulin Ratio 1.35 Ratio (1.60-3.17); Alkaline Phosphatase 58 U/L (41-126); BUN/Creat Ratio 10.78 Ratio (12.00-20.00); Blood Urea Nitrogen 9.7 mg/dL (9.0-27.0); Calcium 7.9 mg/dL (8.7-10.3); Carbon Dioxide 19.4 mmol/L (21.6-31.8); Chloride 100 mmol/L (96-109); Globulin 2.3 g/dL (1.6-3.3); Glucose 98 mg/dL (70-110); Magnesium 1.8 mg/dL (1.5-2.4); Potassium 4.1 mmol/L (3.5-5.5); Sodium 128 mmol/L (135-145); Total Bilirubin 0.4 mg/dL (0.3-1.2); Total Protein 5.4 g/dL (6.2-8.2)
[2023-05-25] MEDS: ATORVASTATIN 10 MG TAB PO SCH (09:15)
[2023-05-25] MEDS: SODIUM BICARBONATE TAB 650 MG TAB PO SCH ×2 (09:15→20:47)
[2023-05-25] MEDS: FAMOTIDINE 20 MG TAB PO SCH (09:15)
[2023-05-25] MEDS: HEPARIN SODIUM,PORCINE 5,000 UNIT/ML 1 ML VIAL SQ SCH ×2 (09:15→20:47)
[2023-05-25 09:24] LABS: Basophils # (A) 0.05 X 10*3/uL (0.00-0.10); Basophils % (A) 0.7 %; Elliptocytes 2+; Eosinophils # (A) 0.39 X 10*3/uL (0.04-0.35); Eosinophils % (A) 5.1 %; Lymphocytes % (A) 16.9 %; Monocytes # (A) 0.53 X 10*3/uL (0.20-1.00); Monocytes % (A) 6.9 %; Neutrophils # (A) 5.37 X 10*3/uL (1.80-7.70); Neutrophils % (A) 69.7 %
--- NOTE | 2023-05-25 09:47 | P.PN ---
Subjective Progress Note Date: 05/25/23 Suhail Carreon, is an 82-year-old male who presented to [facility] emergency room with a chief complaint of bilateral lower extremity edema, generalized weakness He was evaluated in the emergency room vital examination on presentation revealed a temperature of 98 pulse 98 respiration 18 blood pressure 91/60 pulse ox 95% on room air Laboratory data revealed a white blood count of 8.2 hemoglobin 11.6 platelet count 157 d-dimer was significantly elevated at 4.12 sodium 123 potassium 4.2 chloride 94 BUN 24 creatinine 1.63 AST 65 ALT 110 Testing in the emergency room revealed CT angiogram of the chest revealed no definite pulmonary embolus, study was however suboptimal, there was evidence of pulmonary arterial hypertension and a large hiatal hernia, there was a 1.2 cm gallstone and prominent LAD and severe complex coronary artery calcifications. Patient was admitted to medical floor for further evaluation and treatment Past medical history is significant for history of hypertension, history of hyperlipidemia, history of gastroesophageal reflux disease, history of left carpal tunnel syndrome with surgery, history of benign prostatic hypertrophy, history of benign paroxysmal vertigo, history of vitamin D deficiency, patient stated that in the last few months he had an evaluation at [facility] in regard to dizziness, will try to obtain records. On review of systems patient is alert and oriented 3 in no apparent distress, he is complaining of bilateral lower extremity edema, he is complaining of mild erythema to the lower extremities, he is complaining of generalized weakness, he is complaining of right hand numbness, otherwise he denies any complaints there is no fever or chills no headache or dizziness no chest pain no shortness of breath no cough no nausea or vomiting no abdominal pain no diarrhea no blood in the stools no burning with urination no frequency or urgency and no hematuria. On 05/24/2023 patient was seen and examined on the medical floor he is alert and oriented 3 in no apparent distress, he is feeling better weakness is improving vital exam reveals a temperature of 98.1 pulse 87 respiration 20 blood pressure 117/65 pulse ox 93% on room air electrolytes are improving sodium is up to 128, will continue was current management will recheck labs in a.m. On 05/25/2023 patient is alert and oriented 3. Patient reports improvement. Current vital signs temp 98.0, heart rate 67, respiratory rate 18, blood pressure 124/68 with a pulse ox 92% on room air. Chest x-ray showing no acute process. Sodium 128. Nephrology services following. Patient denies chest pain or shortness of breath. Patient denies nausea vomiting or diarrhea. Patient denies any urinary burning or frequency Objective - Vital Signs Vital signs: Vital Signs Temp 98.0 F 05/25/23 07:21 Pulse 67 05/25/23 07:21 Resp 18 05/25/23 07:21 BP 124/68 05/25/23 07:21 Pulse Ox 93 L 05/25/23 07:21 FiO2 Intake & Output 05/24/23 05/25/23 05/25/23 18:59 06:59 18:59 Intake Total 540 Output Total 0 Balance 540 Intake: Oral 540 Output: Urine 0 Other: # Voids 4 # Bowel Movements 1 - Exam In general patient is alert and oriented x 3 in no distress HEENT head normocephalic and atraumatic Neck is supple no JVD no goiter no lymphadenopathy no carotid bruit Chest examination is clear to auscultation no crackles no wheezing Cardiac exam reveals regular heart sounds S1 and S2 no gallops no murmurs Abdomen is soft nontender no organomegaly with normal bowel sounds Extremity exam reveals 2+ edema no cyanosis or clubbing Neurological examination reveals no gross focal deficits - Labs CBC & Chem 7: 05/25/23 05:25 05/25/23 05:25 Labs: Abnormal Lab Results - Last 24 Hours (Table) 05/24/23 05/25/23 05/25/23 Range/Units 05:18 05:25 05:25 RBC 3.19 L (4.40-5.60) X 10*6/uL Hgb 9.9 L (13.0-17.0) g/dL Hct 28.5 L (39.6-50.0) % Immature Gran # 0.06 H 0.05 H (0.00-0.04) X 10*3/uL Lymphocytes # 0.76 L (0.90-5.00) X 10*3/uL Eosinophils # 0.47 H 0.39 H (0.04-0.35) X 10*3/uL Crenated Cell 2+ A Elliptocytes 2+ A 2+ A Sodium 128 L (135-145) mmol/L Carbon Dioxide 19.4 L (21.6-31.8) mmol/L BUN/Creatinine Ratio 10.78 L (12.00-20.00) Ratio Calcium 7.9 L (8.7-10.3) mg/dL ALT 63 H (10-49) U/L Total Protein 5.4 L (6.2-8.2) g/dL Albumin 3.1 L (3.8-4.9) g/dL Albumin/Globulin Ratio 1.35 L (1.60-3.17) Ratio Microbiology - Last 24 Hours (Table) 05/23/23 04:08 Blood Culture - Preliminary Blood 05/23/23 04:08 Blood Culture - Preliminary Blood Assessment and Plan Assessment: Severe hyponatremia, patient was on low-dose of hydrochlorothiazide, will discontinue at this time, he was started on IV normal saline, will monitor sodium closely Bilateral lower extremity swelling, no evidence of DVT bilaterally Elevated d-dimer cause is not clear, no evidence of DVT or PE at this time, COVID-19 testing is negative. Underlying history of hypertension, blood pressure is on the low side at this time will hold Benazepril with hydrochlorothiazide and monitor closely Underlying history of hyperlipidemia maintained on simvastatin Underlying history of benign prostatic hypertrophy Underlying history of gastroesophageal reflux disease Evidence of large hiatal hernia, with entire stomach in the chest cavity At this time patient will be admitted to medical floor Home medications reviewed and reordered Will hold Benazepril /HCT Will check echocardiogram and consult cardiology due to evidence of pulmonary hypertension For DVT prophylaxis subcu heparin Will recheck labs in a.m. and follow closely.
--- NOTE | 2023-05-25 09:53 | CA ---
Transthoracic Echo Report Name: Suhail Carreon Age: 82 Gender: M : 1940 Exam Date: 05/24/2023 10:35 Exam Location: [facility] Ht (in): 69 Wt (lb): 178 Ordering Physician: Bing Vaca MD Attending/Referring Phys: Administrative Medical Director Milton Yepez Procedure CPT: Indications: dyspnea Cardiac Hx: Technical Quality: Fair Contrast 1: Total Dose (mL): Contrast 2: Total Dose (mL): MEASUREMENTS (Male / Female) Normal Values 2D ECHO LV Diastolic Diameter PLAX 4.8 cm 4.2 - 5.9 / 3.9 - 5.3 cm LV Systolic Diameter PLAX 2.8 cm IVS Diastolic Thickness 0.6 cm 0.6 - 1.0 / 0.6 - 0.9 cm LVPW Diastolic Thickness 1.1 cm 0.6 - 1.0 / 0.6 - 0.9 cm LV Relative Wall Thickness 0.4 RV Internal Dim ED PLAX 3.6 cm LVOT Diameter 2.0 cm Aortic Root Diameter 3.2 cm LA Systolic Diameter LX 1.9 cm 3.0 - 4.0 / 2.7 - 3.8 cm LV Diastolic Volume MOD BP 44.2 cm??? 67 - 155 / 56 - 104 cm??? LV Systolic Volume MOD BP 16.5 cm??? 22 - 58 / 19 - 49 cm??? LV Ejection Fraction MOD BP 62.7 % >= 55 % LV Cardiac Index MOD BP 1208.4 cm???/min???m??? LV Diastolic Volume MOD 4C 53.7 cm??? LV Systolic Volume MOD 4C 20.0 cm??? LV Ejection Fraction MOD 4C 62.8 % LV Cardiac Index MOD 4C 1469.3 cm???/min???m??? LV Diastolic Length 4C 7.0 cm LV Systolic Length 4C 6.0 cm LV Diastolic Volume MOD 2C 35.5 cm??? LV Systolic Volume MOD 2C 13.5 cm??? LV Ejection Fraction MOD 2C 62.0 % LV Cardiac Index MOD 2C 957.8 cm???/min???m??? LV Diastolic Length 2C 6.8 cm LV Systolic Length 2C 5.8 cm LA Volume 69.9 cm??? 18 - 58 / 22 - 52 cm??? LA Volume Index 35.0 cm???/m??? 16 - 28 cm???/m??? DOPPLER AV Peak Velocity 153.1 cm/s AV Peak Gradient 9.4 mmHg AI Peak Velocity 421.4 cm/s AI Peak Gradient 71.0 mmHg AI Pressure Half Time 602.9 ms LVOT Peak Velocity 115.8 cm/s LVOT Peak Gradient 5.4 mmHg LVOT Velocity Time Integral 22.3 cm LVOT Stroke Volume 73.0 cm??? LVOT Stroke Volume Index 37.2 ml/m??? LVOT Cardiac Index 3184.5 cm???/min???m??? AV Area Cont Eq pk 2.5 cm??? MV Peak Velocity 114.0 cm/s MV Peak Gradient 5.2 mmHg MV Mean Velocity 57.4 cm/s MV Mean Gradient 1.6 mmHg MV Velocity Time Integral 32.4 cm MR Peak Velocity 465.7 cm/s MR Peak Gradient 86.8 mmHg Mitral E Point Velocity 89.1 cm/s Mitral A Point Velocity 99.9 cm/s Mitral E to A Ratio 0.9 MV Deceleration Time 209.1 ms MV E' Velocity 6.9 cm/s Mitral E to MV E' Ratio 13.0 TR Peak Velocity 284.3 cm/s TR Peak Gradient 32.3 mmHg Right Ventricular Systolic Press 37.3 mmHg PV Peak Velocity 98.5 cm/s PV Peak Gradient 3.9 mmHg FINDINGS Left Ventricle Normal LV size and wall thickness. Left ventricular ejection fraction is estimated at 55-60 %. Right Ventricle Normal right ventricular size. RVSP=45 mmHg. Right Atrium Moderate RA dilatation Left Atrium Moderately increased left atrial volume. Mildly increased left atrial area. LA volume index= 35ml/m2 Mitral Valve Structurally normal mitral valve. No mitral stenosis. No mitral regurgitation. Aortic Valve Trileaflet aortic valve. Trace to mild AI. Tricuspid Valve Structurally normal tricuspid valve. Mild to moderateTR. Pulmonic Valve Pulmonic valve not well visualized. Trace PI. Pericardium Normal pericardium. Aorta Normal size aortic root. CONCLUSIONS Normal LV size and wall thickness. Normal global LV systolic function. EF 55-60%. No obvious regional wall motion abnormality. Moderate biatrial dilatation. Dilated IVC with less than 50% respiratory collapse, suggest mild fluid overload. RVSP 45 mmHg, suggest mild to moderate pulmonary hypertension. No significant valvular dysfunction Previewed by: Dr Jagdish Martinez (Electronically Signed) Final Date: 25 May 2023 09:52
--- NOTE | 2023-05-25 11:09 | P.PN ---
Subjective Progress Note Date: 05/25/23 Reason for Consult (text): dyspnea History of present illness: History of present illness: This is an 82 year old male patient of Dr. Ann Michelle with past medical history of hypertension, hyperlipidemia, palpitations, shortness of breath. We have been asked to evaluate the patient for dyspnea. Patient states he came into the hospital because he could not feel his fingers and had finger pain. Patient is noted to have rash on bilateral lower extremities that he states is been going on for about one week. He denies any itching to this. Friend at the bedside said the rash started when he had his Simms catheter removed about one week ago. Patient denies any abdominal pain. He is not eating very much and has decreased appetite. He noticed lower extremity edema because his socks were tight when he changes them. Patient denies having any chest pain at this time. CTA of the chest revealed no definite pulmonary embolus. Pulmonary artery hyp ertension and mild interstitial scarring of the lungs. Gallstone. LAD and circumflex coronary artery calcifications. Ultrasound of bilateral lower extremities negative for DVT. WBC 7.9, hemoglobin 10.6, platelet count 137. Sodium 138, potassium 3.7, BUN 14, creatinine 1.1. CO2 17. Magnesium 1.9. AST 44, ALT 86, alkaline phosphatase 68. TSH 3.63. Home cardiac medications: Aspirin 81 mg daily as needed, benazeprilhydrochlorothiazide 2012.5 mg daily, simvastatin 20 mg daily. Lexiscan stress test performed in the office 11/03/2022, negative stress test, normal myocardial perfusion and function. Echocardiogram performed 10/30/2022 in the office revealed EF 55%. Mild concentric left ventricular hypertrophy. Mild aortic regurgitation. [id number] mitral regurgitation. Mild tricuspid regurgitation. PAS P 37 mmHg. 05/25 Patient is currently on IV fluids at 50 mL per hour has also been started on sodium bicarb. He is on a fluid restriction of 1500 mL daily. Heart rate is running in 60s to 80s, blood pressure 124/68, pulse ox 93% on room air, afebrile. Repeat blood work reveals hemoglobin 9.9, sodium 128, BUN 9.7 creatinine 0.9. Rash to the lower extremities is improving. Echocardiogram reveals EF 55-60%, moderate biatrial dilatation. Dilated IVC with less than 50% respiratory collapse suggest mild fluid overload. RVSP 45 mmHg suggest mild to moderate pulmonary hypertension. No significant valvular dysfunction. Physical examination: Gen: This is an 82-year-old male. He appears to be in no respiratory distress. VS: reviewed HEENT: Head is atraumatic, normocephalic. Pupils equal, round. Sclerae is anicteric. NECK: Supple. No JVD. LUNGS: Clear to auscultation. No wheezes or rhonchi. No intercostal retractions. HEART: Regular rate and rhythm. No murmur. ABDOMEN: Soft No tenderness. EXTREMITIES: 2+ pedal edema. Petechial rash to the legs. NEUROLOGICAL: Patient is awake, alert and oriented x3. Assessment: Dyspnea Volume overload Acute kidney injury Hyponatremia Petechiae rash on the legs Thrombocytopenia, anemia Plan: Continue patient's current cardiac medications (benazepril/hydrochlorothiazide on hold) Nephrology is managing acute kidney injury and hyponatremia Further recommendations to follow based upon clinical course Nurse practitioner note has been reviewed, I agree with documented findings and plan of care. Patient was seen and examined. Objective - Vital Signs Vital signs: Vital Signs Temp 98.0 F 05/25/23 07:21 Pulse 67 05/25/23 07:21 Resp 18 05/25/23 07:21 BP 124/68 05/25/23 07:21 Pulse Ox 93 L 05/25/23 07:21 FiO2 Intake & Output 05/24/23 05/25/23 05/25/23 18:59 06:59 18:59 Intake Total 540 Output Total 0 Balance 540 Intake: Oral 540 Output: Urine 0 Other: # Voids 4 # Bowel Movements 1 - Labs CBC & Chem 7: 05/25/23 05:25 05/25/23 05:25 Labs: Abnormal Lab Results - Last 24 Hours (Table) 05/24/23 05/25/23 05/25/23 Range/Units 05:18 05:25 05:25 RBC 3.19 L (4.40-5.60) X 10*6/uL Hgb 9.9 L (13.0-17.0) g/dL Hct 28.5 L (39.6-50.0) % Immature Gran # 0.06 H 0.05 H (0.00-0.04) X 10*3/uL Lymphocytes # 0.76 L (0.90-5.00) X 10*3/uL Eosinophils # 0.47 H 0.39 H (0.04-0.35) X 10*3/uL Crenated Cell 2+ A Elliptocytes 2+ A 2+ A Sodium 128 L (135-145) mmol/L Carbon Dioxide 19.4 L (21.6-31.8) mmol/L BUN/Creatinine Ratio 10.78 L (12.00-20.00) Ratio Calcium 7.9 L (8.7-10.3) mg/dL ALT 63 H (10-49) U/L Total Protein 5.4 L (6.2-8.2) g/dL Albumin 3.1 L (3.8-4.9) g/dL Albumin/Globulin Ratio 1.35 L (1.60-3.17) Ratio Microbiology - Last 24 Hours (Table) 05/23/23 04:08 Blood Culture - Preliminary Blood 05/23/23 04:08 Blood Culture - Preliminary Blood
--- NOTE | 2023-05-25 11:52 | P.PN ---
Subjective Patient is seen in follow-up for acute kidney injury and hyponatremia. Sodium level stable at 128. Renal function improved. Denies chest pain or shortness of breath. Has been voiding. Oral intake is good. Vital signs are stable. General: No acute distress. HEENT: Head exam is unremarkable. LUNGS: No audible rhonchi or wheezes. HEART: Rate and Rhythm are regular. ABDOMEN: Nontender. EXTREMITITES: No edema. Objective - Vital Signs Vital signs: Vital Signs Temp 98.0 F 05/25/23 07:21 Pulse 67 05/25/23 07:21 Resp 18 05/25/23 07:21 BP 124/68 05/25/23 07:21 Pulse Ox 93 L 05/25/23 07:21 FiO2 Intake & Output 05/24/23 05/25/23 05/25/23 18:59 06:59 18:59 Intake Total 540 Output Total 0 Balance 540 Intake: Oral 540 Output: Urine 0 Other: # Voids 4 # Bowel Movements 1 - Labs CBC & Chem 7: 05/25/23 05:25 05/25/23 05:25 Labs: Abnormal Lab Results - Last 24 Hours (Table) 05/25/23 05/25/23 Range/Units 05:25 05:25 RBC 3.19 L (4.40-5.60) X 10*6/uL Hgb 9.9 L (13.0-17.0) g/dL Hct 28.5 L (39.6-50.0) % Immature Gran # 0.05 H (0.00-0.04) X 10*3/uL Eosinophils # 0.39 H (0.04-0.35) X 10*3/uL Elliptocytes 2+ A Sodium 128 L (135-145) mmol/L Carbon Dioxide 19.4 L (21.6-31.8) mmol/L BUN/Creatinine Ratio 10.78 L (12.00-20.00) Ratio Calcium 7.9 L (8.7-10.3) mg/dL ALT 63 H (10-49) U/L Total Protein 5.4 L (6.2-8.2) g/dL Albumin 3.1 L (3.8-4.9) g/dL Albumin/Globulin Ratio 1.35 L (1.60-3.17) Ratio Microbiology - Last 24 Hours (Table) 05/23/23 04:08 Blood Culture - Preliminary Blood 05/23/23 04:08 Blood Culture - Preliminary Blood Assessment and Plan Plan: Assessment: 1. Acute kidney injury secondary to vasomotor nephropathy secondary to hypovolemia and further worsened with the use of CARLITOS inhibitor and diuretic. Bactrim can further impair creatinine secretion. Also received IV contrast for CTA on 05/23/2023 that showed no PE. Creatinine 1.63 on admission - 0.9 today. Baseline creatinine near 1. No proteinuria on UA. urine eosinophils mildly positive at 2%. No hydronephrosis noted on kidney ultrasound. 2. Hypovolemic hyponatremia further worsened with the use of thiazide diuretic and poor solute intake. Urine osmolality 250. Urine sodium 54. TSH normal. 3. Metabolic acidosis secondary to acute kidney injury and IV fluids. On oral bicarb. Better. 4. BPH with urinary retention status post urologic intervention recently. 5. Benign hypertension. Controlled. 6. Lower extremity rash. Possibly from Bactrim. No evidence of DVT. Hepatitis panel negative. 7. Hypomagnesemia from poor intake and diuretic use. Replaced. Improved. 8. 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 Plan: HepLock IV fluids. Lasix 20 mg Iv once today. Encouraged oral intake. Maintain 1500 mL fluid restriction. Hold antihypertensives. Follow-up CEM and ANCA titers. Avoid Bactrim. Urine eosinophils mildly positive at 2% - can be from bactrim which is now held. Repeat labs in the morning.
[2023-05-25] MEDS ORDERED: FUROSEMIDE 10 MG/ML 2 ML VIAL IV ONE (12:00)
[2023-05-25 13:29] LABS: C-ANCA <1:20 Titer (<1:20)
[2023-05-25 20:40] VITALS: RESP 16
[2023-05-26] MEDS: ACETAMINOPHEN TAB 325 MG TAB PO PRN (04:01)
[2023-05-26] MEDS: HEPARIN SODIUM,PORCINE 5,000 UNIT/ML 1 ML VIAL SQ SCH (07:37)
[2023-05-26] MEDS: FAMOTIDINE 20 MG TAB PO SCH (07:37)
[2023-05-26] MEDS: ATORVASTATIN 10 MG TAB PO SCH (07:37)
[2023-05-26] MEDS: SODIUM BICARBONATE TAB 650 MG TAB PO SCH (07:37)
[2023-05-26 08:30] VITALS: BP 128/77; PULSE 63; TEMP 97.5
[2023-05-26 08:46] LABS: Blood Urea Nitrogen 9.9 mg/dL (9.0-27.0); Calcium 8.6 mg/dL (8.7-10.3); Carbon Dioxide 21.2 mmol/L (21.6-31.8); Chloride 100 mmol/L (96-109); Glucose 103 mg/dL (70-110); Magnesium 1.7 mg/dL (1.5-2.4); Potassium 4.1 mmol/L (3.5-5.5); Sodium 133 mmol/L (135-145)
[2023-05-26] MEDS ORDERED: FUROSEMIDE 10 MG/ML 2 ML VIAL IV ONE (09:05)
[2023-05-26] MEDS ORDERED: amLODIPine 5 MG TAB PO SCH (09:15)
--- NOTE | 2023-05-26 10:29 | P.PN ---
Subjective Progress Note Date: 05/26/23 Reason for Consult (text): dyspnea History of present illness: History of present illness: This is an 82 year old male patient of Dr. Ann Michelle with past medical history of hypertension, hyperlipidemia, palpitations, shortness of breath. We have been asked to evaluate the patient for dyspnea. Patient states he came into the hospital because he could not feel his fingers and had finger pain. Patient is noted to have rash on bilateral lower extremities that he states is been going on for about one week. He denies any itching to this. Friend at the bedside said the rash started when he had his Simms catheter removed about one week ago. Patient denies any abdominal pain. He is not eating very much and has decreased appetite. He noticed lower extremity edema because his socks were tight when he changes them. Patient denies having any chest pain at this time. CTA of the chest revealed no definite pulmonary embolus. Pulmonary artery hyp ertension and mild interstitial scarring of the lungs. Gallstone. LAD and circumflex coronary artery calcifications. Ultrasound of bilateral lower extremities negative for DVT. WBC 7.9, hemoglobin 10.6, platelet count 137. Sodium 138, potassium 3.7, BUN 14, creatinine 1.1. CO2 17. Magnesium 1.9. AST 44, ALT 86, alkaline phosphatase 68. TSH 3.63. Home cardiac medications: Aspirin 81 mg daily as needed, benazeprilhydrochlorothiazide 2012.5 mg daily, simvastatin 20 mg daily. Lexiscan stress test performed in the office 11/03/2022, negative stress test, normal myocardial perfusion and function. Echocardiogram performed 10/30/2022 in the office revealed EF 55%. Mild concentric left ventricular hypertrophy. Mild aortic regurgitation. [id number] mitral regurgitation. Mild tricuspid regurgitation. PAS P 37 mmHg. 05/25 Patient is currently on IV fluids at 50 mL per hour has also been started on sodium bicarb. He is on a fluid restriction of 1500 mL daily. Heart rate is running in 60s to 80s, blood pressure 124/68, pulse ox 93% on room air, afebrile. Repeat blood work reveals hemoglobin 9.9, sodium 128, BUN 9.7 creatinine 0.9. Rash to the lower extremities is improving. Echocardiogram reveals EF 55-60%, moderate biatrial dilatation. Dilated IVC with less than 50% respiratory collapse suggest mild fluid overload. RVSP 45 mmHg suggest mild to moderate pulmonary hypertension. No significant valvular dysfunction. 05/26 Patient's lower extremity edema and rash are improving. Blood pressure 128/77, heart rate in the 60s, afebrile, pulse ox 97% on room air. Repeat blood work reveals sodium 133, potassium 4.1, creatinine 0.9. Yesterday, IV fluids were discontinued and patient received 1 dose of IV Lasix 20 mg ordered by nephrology. Physical examination: Gen: This is an 82-year-old male. He appears to be in no respiratory distress. VS: reviewed HEENT: Head is atraumatic, normocephalic. Pupils equal, round. Sclerae is anicteric. NECK: Supple. No JVD. LUNGS: Clear to auscultation. No wheezes or rhonchi. No intercostal retractions. HEART: Regular rate and rhythm. No murmur. ABDOMEN: Soft No tenderness. EXTREMITIES: 1+ pedal edema. Petechial rash to the legs improving. NEUROLOGICAL: Patient is awake, alert and oriented x3. Assessment: Dyspnea Volume overload Acute kidney injury Hyponatremia Petechiae rash on the legs Thrombocytopenia, anemia Plan: Continue patient's current cardiac medications (benazepril/hydrochlorothiazide on hold and not to be resumed at discharge) Start patient on Amlodipine 5 mg daily ---- hold today as patient took Benazepril/HCTZ from home. Patient to receive 1 dose of IV Lasix 20 mg Nephrology is managing acute kidney injury and hyponatremia Patient is clear for discharge from cardiology will follow-up with Dr. Yoo in 1-2 weeks. Nurse practitioner note has been reviewed, I agree with documented findings and plan of care. Patient was seen and examined. Objective - Vital Signs Vital signs: Vital Signs Temp 97.5 F L 05/26/23 07:46 Pulse 63 05/26/23 07:46 Resp 16 05/26/23 07:46 BP 128/77 05/26/23 07:46 Pulse Ox 97 05/26/23 07:46 FiO2 Intake & Output 05/25/23 05/26/23 05/26/23 18:59 06:59 18:59 Other: # Voids 2 2 1 - Labs CBC & Chem 7: 05/25/23 05:25 05/26/23 05:33 Labs: Abnormal Lab Results - Last 24 Hours (Table) 05/25/23 05/25/23 05/26/23 Range/Units 05:25 05:25 05:33 Immature Gran # 0.05 H (0.00-0.04) X 10*3/uL Eosinophils # 0.39 H (0.04-0.35) X 10*3/uL Elliptocytes 2+ A Sodium 128 L 133 L (135-145) mmol/L Carbon Dioxide 19.4 L 21.2 L (21.6-31.8) mmol/L BUN/Creatinine Ratio 10.78 L 11.00 L (12.00-20.00) Ratio Calcium 7.9 L 8.6 L (8.7-10.3) mg/dL ALT 63 H (10-49) U/L Total Protein 5.4 L (6.2-8.2) g/dL Albumin 3.1 L (3.8-4.9) g/dL Albumin/Globulin Ratio 1.35 L (1.60-3.17) Ratio Microbiology - Last 24 Hours (Table) 05/23/23 04:08 Blood Culture - Preliminary Blood 05/23/23 04:08 Blood Culture - Preliminary Blood
--- NOTE | 2023-05-26 11:07 | P.PN ---
Subjective Patient is seen in follow-up for acute kidney injury and hyponatremia. Sodium level improved to 133. Renal function at baseline. Denies chest pain or shortness of breath. Has been voiding. Oral intake is good. Vital signs are stable. General: No acute distress. HEENT: Head exam is unremarkable. LUNGS: No audible rhonchi or wheezes. HEART: Rate and Rhythm are regular. ABDOMEN: Nontender. EXTREMITITES: No edema. Objective - Vital Signs Vital signs: Vital Signs Temp 97.5 F L 05/26/23 07:46 Pulse 63 05/26/23 07:46 Resp 16 05/26/23 07:46 BP 128/77 05/26/23 07:46 Pulse Ox 97 05/26/23 07:46 FiO2 Intake & Output 05/25/23 05/26/23 05/26/23 18:59 06:59 18:59 Other: # Voids 2 2 1 - Labs CBC & Chem 7: 05/25/23 05:25 05/26/23 05:33 Labs: Abnormal Lab Results - Last 24 Hours (Table) 05/26/23 Range/Units 05:33 Sodium 133 L (135-145) mmol/L Carbon Dioxide 21.2 L (21.6-31.8) mmol/L BUN/Creatinine Ratio 11.00 L (12.00-20.00) Ratio Calcium 8.6 L (8.7-10.3) mg/dL Microbiology - Last 24 Hours (Table) 05/23/23 04:08 Blood Culture - Preliminary Blood 05/23/23 04:08 Blood Culture - Preliminary Blood Assessment and Plan Plan: Assessment: 1. Acute kidney injury secondary to vasomotor nephropathy secondary to hypovolemia and further worsened with the use of CARLITOS inhibitor and diuretic. Bactrim can further impair creatinine secretion. Also received IV contrast for CTA on 05/23/2023 that showed no PE. Creatinine 1.63 on admission - stable at 0.9 today. Baseline creatinine near 1. No proteinuria on UA. urine eosinophils mildly positive at 2%. ANCA titers negative. Rash improved. No hydronephrosis noted on kidney ultrasound. 2. Hypovolemic hyponatremia further worsened with the use of thiazide diuretic and poor solute intake. Urine osmolality 250. Urine sodium 54. TSH normal. 3. Metabolic acidosis secondary to acute kidney injury and IV fluids. On oral bicarb. Better. 4. BPH with urinary retention status post urologic intervention recently. 5. Benign hypertension. Controlled. 6. Lower extremity rash. Possibly from Bactrim. No evidence of DVT. Hepatitis panel negative. 7. Hypomagnesemia from poor intake and diuretic use. Replaced. Improved. 8. 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 Plan: Lasix 20 mg IV given yesterday and today. Add chlorthalidone. Encouraged oral intake. Maintain 1500 mL fluid restriction. Maintain amlodipine. Hold off on acei/hctz upon d/c. Avoid Bactrim. Add magox and potassium supplementation. Urine eosinophils mildly positive at 2% - can be from bactrim which is now held. Rash improved. Repeat BMP and magnesium level 2-3 days postdischarge. Follow up outpatient in 1 week.
[2023-05-26] MEDS ORDERED: MAGNESIUM OXIDE 400 MG TAB PO SCH (11:15)
--- NOTE | 2023-05-26 16:52 | P.DS ---
Providers Date of admission: 05/23/23 07:49 Expected date of discharge: 05/26/23 Attending physician: Bing Vaca Consults: 05/23/23 10:50 Consult Physician Routine Consulting Provider: Maribel Stewart Consult Reason/Comments: dyspnea Do you want consulting provider notified?: Yes 05/23/23 10:51 Consult Physician Routine Consulting Provider: July Brown Consult Reason/Comments: hyponatremia Do you want consulting provider notified?: Yes Primary care physician: Marcelino Juarez [facility] Course: Diagnosis on discharge: Severe hyponatremia, patient was on low-dose of hydrochlorothiazide, will discontinue at this time, he was started on IV normal saline, will monitor sodium closely Bilateral lower extremity swelling, no evidence of DVT bilaterally Elevated d-dimer cause is not clear, no evidence of DVT or PE at this time, COVID-19 testing is negative. Underlying history of hypertension, blood pressure is on the low side at this ti me will hold Benazepril with hydrochlorothiazide and monitor closely Underlying history of hyperlipidemia maintained on simvastatin Underlying history of benign prostatic hypertrophy Underlying history of gastroesophageal reflux disease Evidence of large hiatal hernia, with entire stomach in the chest cavity Hospital course: Suhail Carreon, is an 82-year-old male who presented to [facility] emergency room with a chief complaint of bilateral lower extremity edema, generalized weakness He was evaluated in the emergency room vital examination on presentation revealed a temperature of 98 pulse 98 respiration 18 blood pressure 91/60 pulse ox 95% on room air Laboratory data revealed a white blood count of 8.2 hemoglobin 11.6 platelet count 157 d-dimer was significantly elevated at 4.12 sodium 123 potassium 4.2 chloride 94 BUN 24 creatinine 1.63 AST 65 ALT 110 Testing in the emergency room revealed CT angiogram of the chest revealed no de finite pulmonary embolus, study was however suboptimal, there was evidence of pulmonary arterial hypertension and a large hiatal hernia, there was a 1.2 cm gallstone and prominent LAD and severe complex coronary artery calcifications. Patient was admitted to medical floor for further evaluation and treatment Past medical history is significant for history of hypertension, history of hyperlipidemia, history of gastroesophageal reflux disease, history of left carpal tunnel syndrome with surgery, history of benign prostatic hypertrophy, history of benign paroxysmal vertigo, history of vitamin D deficiency, patient stated that in the last few months he had an evaluation at [facility] in regard to dizziness, will try to obtain records. On review of systems patient is alert and oriented 3 in no apparent distress, he is complaining of bilateral lower extremity edema, he is complaining of mild erythema to the lower extremities, he is complaining of generalized weakness, he is complaining of right hand numbness, otherwise he denies any complaints there is no fever or chills no headache or dizziness no chest pain no shortness of breath no cough no nausea or vomiting no abdominal pain no diarrhea no blood in the stools no burning with urination no frequency or urgency and no hematuria. On 05/24/2023 patient was seen and examined on the medical floor he is alert and oriented 3 in no apparent distress, he is feeling better weakness is improving vital exam reveals a temperature of 98.1 pulse 87 respiration 20 blood pressure 117/65 pulse ox 93% on room air electrolytes are improving sodium is up to 128, will continue was current management will recheck labs in a.m. On 05/25/2023 patient is alert and oriented 3. Patient reports improvement. Current vital signs temp 98.0, heart rate 67, respiratory rate 18, blood pressure 124/68 with a pulse ox 92% on room air. Chest x-ray showing no acute process. Sodium 128. Nephrology services following. Patient denies chest pain or shortness of breath. Patient denies nausea vomiting or diarrhea. Patient denies any urinary burning or frequency On 05/26/2023 patient was seen and examined on the medical floor he is alert and oriented 3 in no apparent distress there is no fever or chills no headache or dizziness no chest pain no shortness of breath no cough no nausea or vomiting no abdominal pain no diarrhea and no urinary symptoms. Sodium improved up to 133, patient is clinically stable he will be discharged to home today, follow-up with Dr. Mcfarlane in one-week follow-up with Dr. Agrawal in one week Patient Condition at Discharge: Good Plan - Discharge Summary Discharge Rx Participant: No New Discharge Prescriptions: New Chlorthalidone [Hygroton] 25 mg PO DAILY 30 Days #30 tab Famotidine [Pepcid] 20 mg PO DAILY 30 Days #30 tab Potassium Chloride ER [K-Dur 10] 10 meq PO DAILY 30 Days #30 tab Magnesium Oxide [Mag-Ox] 400 mg PO DAILY 30 Days #30 tab amLODIPine [Norvasc] 5 mg PO DAILY 30 Days #30 tab Continue Simvastatin [Zocor] 20 mg PO DAILY Aspirin [Adult Low Dose Aspirin EC] 81 mg PO DAILY PRN PRN Reason: Pain Discontinued Pantoprazole Sodium 40 mg PO DAILY Benazepril/Hydrochlorothiazide [Benazepril-Hctz 20-12.5 mg Tab] 1 tab PO DAILY Sulfamethox-Tmp 800-160Mg [Bactrim DS 800-160 mg] 1 tab PO Q12HR 7 Days #14 tab No Action Garlic 2,000 mg PO DAILY Cholecalciferol [Vitamin D3 (25 Mcg = 1000 Iu)] 50 mcg PO DAILY Fish Oil/Dha/Epa [Fish Oil 1,200 mg Fish Oil] 3 cap PO DAILY Discharge Medication List Simvastatin [Zocor] 20 mg PO DAILY 12/07/16 [History] Aspirin [Adult Low Dose Aspirin EC] 81 mg PO DAILY PRN 01/05/17 [History] Cholecalciferol [Vitamin D3 (25 Mcg = 1000 Iu)] 50 mcg PO DAILY 05/23/23 [History] Fish Oil/Dha/Epa [Fish Oil 1,200 mg Fish Oil] 3 cap PO DAILY 05/23/23 [History] Garlic 2,000 mg PO DAILY 05/23/23 [History] Chlorthalidone [Hygroton] 25 mg PO DAILY 30 Days #30 tab 05/26/23 [Rx] Famotidine [Pepcid] 20 mg PO DAILY 30 Days #30 tab 05/26/23 [Rx] Magnesium Oxide [Mag-Ox] 400 mg PO DAILY 30 Days #30 tab 05/26/23 [Rx] Potassium Chloride ER [K-Dur 10] 10 meq PO DAILY 30 Days #30 tab 05/26/23 [Rx] amLODIPine [Norvasc] 5 mg PO DAILY 30 Days #30 tab 05/26/23 [Rx] Follow up Appointment(s)/Referral(s): Marcelino Mcfarlane MD [Primary Care Provider] - 1-2 days Ashish Michelle MD [STAFF PHYSICIAN] - 2 Weeks
[2023-05-27] MEDS ORDERED: CHLORTHALIDONE 25 MG TAB PO SCH (09:00)
[2023-05-27] MEDS ORDERED: FUROSEMIDE 20 MG TAB PO SCH (09:00)
[2023-05-27] MEDS ORDERED: POTASSIUM CHLORIDE ER 10 MEQ TAB.ER.PRT PO SCH (09:00)
[2023-05-31 15:59] LABS: ANA Pattern SPK
== END 2023-05-26 17:25 | disposition home or self-care (01) | DRG 640 ==
LOC: EC 02:53 → 4SSUR 07:49
PROVIDERS: ADMIT Internal Medicine; ATTEND Internal Medicine
DX: E87.1 Hypo-osmolality and hyponatremia (principal); N17.0 Acute kidney failure with tubular necrosis; D69.0 Allergic purpura; I50.32 Chronic diastolic (congestive) heart failure; D69.6 Thrombocytopenia, unspecified; I27.21 Secondary pulmonary arterial hypertension; E87.20 Acidosis, unspecified; I11.0 Hypertensive heart disease with heart failure; Z20.822 Contact with and (suspected) exposure to COVID-19; E78.5 Hyperlipidemia, unspecified; E83.42 Hypomagnesemia; E86.1 Hypovolemia; D64.9 Anemia, unspecified; T50.2X5A Adverse effect of carbonic-anhydrase inhibitors, benzothiadiazides and other diuretics, initial encounter; I08.3 Combined rheumatic disorders of mitral, aortic and tricuspid valves; I25.10 Atherosclerotic heart disease of native coronary artery without angina pectoris; I25.84 Coronary atherosclerosis due to calcified coronary lesion; K44.9 Diaphragmatic hernia without obstruction or gangrene; K80.20 Calculus of gallbladder without cholecystitis without obstruction; N40.1 Benign prostatic hyperplasia with lower urinary tract symptoms; R33.8 Other retention of urine; H81.10 Benign paroxysmal vertigo, unspecified ear; K21.9 Gastro-esophageal reflux disease without esophagitis; K64.9 Unspecified hemorrhoids; Z79.82 Long term (current) use of aspirin; Z79.899 Other long term (current) drug therapy; Z86.19 Personal history of other infectious and parasitic diseases
CPT/HCPCS: 36415; 71045; 71275; 76770; 80048; 80053; 80074; 81001; 82570; 83735; 83930; 83935; 84133; 84295; 84300; 84443; 85025; 85379; 86038; 86039; 86140; 86255; 87040; 87205; 87636; 93306; 93970; 96361; 96365; 96366; 96372; 99285

== ENCOUNTER → 2023-08-11 | Outpatient (CLI) | payer MEDICARE ==
[2023-08-11 15:50] LABS: Basophils # (A) 0.06 X 10*3/uL (0.00-0.10); Basophils % (A) 0.8 %; Eosinophils # (A) 0.13 X 10*3/uL (0.04-0.35); Eosinophils % (A) 1.8 %; HCT 39.9 % (39.6-50.0); HGB 13.4 g/dL (13.0-17.0); Lymphocytes # (A) 2.28 X 10*3/uL (0.90-5.00); Lymphocytes % (A) 32.1 %; MCH 30.2 pg (27.0-32.0); MCHC 33.6 g/dL (32.0-37.0); MCV 89.9 FL (80.0-97.0); Mean Platelet Volume 9.4 FL (9.5-12.2); Monocytes # (A) 0.73 X 10*3/uL (0.20-1.00); Monocytes % (A) 10.3 %; NRBC Per 100 WBC 0 X 10*3/uL (0.00-0.01); Neutrophils # (A) 3.88 X 10*3/uL (1.80-7.70); Neutrophils % (A) 54.6 %; Platelet Count 258 X 10*3/uL (140-440); RBC 4.44 X 10*6/uL (4.40-5.60); WBC 7.11 X 10*3/uL (4.50-10.00)
[2023-08-11 16:24] LABS: BUN/Creat Ratio 12.27 Ratio (12.00-20.00); Blood Urea Nitrogen 13.5 mg/dL (9.0-27.0); Carbon Dioxide 25.7 mmol/L (21.6-31.8); Chloride 99 mmol/L (96-109); Glucose 88 mg/dL (70-110); Potassium 3.7 mmol/L (3.5-5.5); Sodium 137 mmol/L (135-145)
[2023-08-11 16:25] LABS: Calcium 10.2 mg/dL (8.7-10.3)
== END | disposition home or self-care (01) ==
LOC: LABPAT 09:33
PROVIDERS: ATTEND Orthopaedic Surgery Hand Surgery
DX: Z01.818 Encounter for other preprocedural examination (principal); G56.01 Carpal tunnel syndrome, right upper limb; R94.31 Abnormal electrocardiogram [ECG] [EKG]; R00.1 Bradycardia, unspecified
CPT/HCPCS: 36415; 80048; 85025; 93005

== ENCOUNTER 2023-09-01 06:57 | Day surgery (SDC) | payer MEDICARE ==
--- NOTE | 2023-08-30 14:13 | P.HPOR ---
History of Present Illness H&P Date: 08/30/23 Subjective: This is a 83 year old male that presents today for initial evaluation regarding a 3-4 year history of progressively worsening right hand paresthesias in the thumb, index, middle and ring fingers. The patient has tried wrist bracing at night with little relief of his symptoms. They deny any inciting event or neck pain. Physical Examination: RUE: AIN/PIN/Radial/Ulnar/Median motor intact. Radial/Ulnar/Median SILT. 2+/4 Radial/Ulnar pulses palpated. 5/5 APB, 5/5 FDI. Negative Finkelsteins, negative CMC grind, positive Durkan's compression. Impression: 1.) Right carpal tunnel syndrome Plan: Diagnosis and treatment options were discussed with the patient. The patient has failed conservative treatment and would like to pursue a right endoscopic vs open carpal tunnel release. Risks and benefits of surgery including bleeding, infection, damage to surrounding tissue, need for further surgery, possible need to convert to open procedure, residual numbness were discussed and the patient wished to go forward with surgery. CC: Dr. Maeve Duque DO Orthopedic Hand/Upper Extremity Surgeon Past Medical History Past Medical History: GERD/Reflux, Hyperlipidemia, Hypertension, Prostate Disorder Additional Past Medical History / Comment(s): Enlarged Prostate - had surgery, Hx. of shingles, hemorrhoids - had surgery; recent 06/05 admission w/ fatigue, lower extremity rash & swelling, hyponatremia; states he saw a burn out tender lace 3-4 mos ago History of Any Multi-Drug Resistant Organisms: None Reported Past Surgical History: Appendectomy, Orthopedic Surgery Additional Past Surgical History / Comment(s): colonoscopy, back surgery 1986, prostate surgery 2022 Past Anesthesia/Blood Transfusion Reactions: No Reported Reaction Smoking Status: Never smoker - Past Family History Mother Family Medical History: No Reported History Sister(s) Family Medical History: Cancer Additional Family Medical History / Comment(s): Lung Medications and Allergies Home Medications Medication Instructions Recorded Confirmed Type Simvastatin [Zocor] 20 mg PO QAM 12/07/16 08/26/23 History Aspirin [Adult Low Dose Aspirin EC] 81 mg PO DAILY 01/05/17 08/26/23 History Cholecalciferol [Vitamin D3 (25 50 mcg PO DAILY 05/23/23 08/26/23 History Mcg = 1000 Iu)] Fish Oil/Dha/Epa [Fish Oil 1,200 3 cap PO QAM 05/23/23 08/26/23 History mg Fish Oil] Garlic 2,000 mg PO QAM 05/23/23 08/26/23 History Acetaminophen [Tylenol Arthritis] 1 tab PO BID PRN 08/26/23 08/26/23 History Famotidine [Pepcid] 20 mg PO QAM 08/26/23 08/26/23 History Magnesium Oxide [Mag-Ox] 400 mg PO QAM 08/26/23 08/26/23 History Pantoprazole [Protonix] 40 mg PO QAM 08/26/23 08/26/23 History Potassium Chloride ER [K-Dur 10] 10 meq PO QAM 08/26/23 08/26/23 History amLODIPine [Norvasc] 5 mg PO QAM 08/26/23 08/26/23 History Allergies Allergy/AdvReac Type Severity Reaction Status Date / Time No Known Allergies Allergy Verified 08/26/23 09:51 Physical Examination Osteopathic Statement: *. No significant issues noted on an osteopathic structural exam other than those noted in the History and Physical/Consult.
[~2023-09-01 06:57] MED LIST changes: -DEXAMETHASONE SOD PHOSPHATE 10 MG/ML 1 ML VIAL IV ONE; -LACTATED RINGERS 1,000 ML IV SCH; -LIDOCAINE 1% 20 ML VIAL (10MG/ML) FOR IV START INTRADERMA PRN; -MIDAZOLAM 2 MG/2 ML VIAL IV PRN; +Pre Op ABX Message 1 EACH MISC MISCELLANE ONE; -fentaNYL (PF) 50 MCG/ML 2 ML AMP IV PRN
[2023-09-01] MEDS ORDERED: HYDROmorphone 0.5 MG/0.5 ML SYRINGE IVP PRN (07:00)
[2023-09-01 07:41] VITALS: TEMP 98.3
[2023-09-01] MEDS: LACTATED RINGERS 1,000 ML IV SCH (08:00)
[2023-09-01] MEDS: ONDANSETRON 4 MG/2 ML VIAL IVP ONE (08:07)
[2023-09-01] MEDS: DEXAMETHASONE SOD PHOSPHATE 4 MG/ML 1 ML VIAL IV ONE (08:07)
[2023-09-01] MEDS: LIDOCAINE 2% INJ 20 MG/ML SQ ONE ×2 (08:18→08:31)
[2023-09-01] MEDS: BUPIVACAINE (PF) 0.5% 30 ML VIAL SQ ONE ×2 (08:18→08:31)
[2023-09-01] MEDS ORDERED: PROPOFOL 10 MG/ML 20 ML VIAL IV ONE ×2 (08:23→11:31)
[2023-09-01] MEDS ORDERED: fentaNYL (PF) 50 MCG/ML 2 ML AMP ONE (08:23)
[2023-09-01] MEDS ORDERED: MIDAZOLAM 2 MG/2 ML VIAL ONE (08:23)
--- NOTE | 2023-09-01 08:51 | P.OP ---
Date of Procedure: 09/01/23 Preoperative Diagnosis: Right carpal tunnel syndrome Postoperative Diagnosis: Right carpal tunnel syndrome Procedure(s) Performed: Right endoscopic carpal tunnel release Anesthesia: MAC Surgeon: Dakota Duque Contact Agent #1: Misbah Parmar Estimated Blood Loss (ml): 0 Pathology: none sent Condition: stable Disposition: PACU Description of Procedure: This is a 83 year old male who presents today for a right endoscopic carpal tunnel release after having failed conservative treatment in the past. Risks and benefits of surgery were discussed with the patient including bleeding, damage to surrounding tissue, infection, need to convert to open procedure, need for further surgery as well as risks of anesthesia including pulmonary embolism and even and the patient wished to proceed with surgical intervention. The patients was seen in the pre-operative area by myself. Consent and H&P were completed and updated. The correct extremity was marked in the pre-operative area by myself and all other questions were answered. Operative Narrative: The patient was brought to the operating room by the department of anesthesia. They remained on the portable stretcher and a rolling hand table was brought to the side of the operative extremity. Pre-operative time out was performed indicating the correct patient, procedure and laterality. All in the room agreed. The patient was then drifted off to sleep by the department of anes thesia. MAC anesthesia was utilized and a 50:50 mixture of 1% Lidocaine and 0.5% bupivacaine was injected into the subcutaneous tissues of the palmar skin, 8ccs total. A nonsterile tourniquet was then applied to the operative extremity and the right upper extremity was then prepped and draped in normal sterile fashion. The operative extremity was the exsanguinated with an esmarch bandage and the tourniquet was inflated to 250mmHg. 15 blade scalpel was utilized to make a transverse incision on the palmar skin just ulnar to the palmaris longus tendon at the level of the distal wrist crease. Ragnell retractor was then placed radially and blunt dissection was performed to reveal the distal forearm fascia. This was lifted with fine Lawrence pick ups and Littler tenotomy scissors were then used to open the forearm fascia transversely and a double skin hook was then placed. Hamate finder was placed into the carpal tunnel and then sequential sized dilators were inserted followed by the synovial elevator to separate the flexor tenosynovium from the undersurface of the transverse carpal ligament and a washboard texture was felt. The MicroAire endoscopic carpal tunnel release system gun was the then inserted into the carpal tunnel hugging the deep portion of the transverse carpal ligament in line with the base of the ring finger. Transverse fibers of the ligament were directly visualized. Pressure was applied on the palm to reveal the distal extent of the transverse carpal ligament. The blade was then deployed and the distal half of the transverse carpal ligament was released. The scope was then brought distal again and remaining transverse fibers were incised with the blade. The proximal half of the transverse carpal ligament was then divided and again the scope was advanced distal and remaining transverse fibers were incised with the blade. The radial and ulnar leaflets were directly visualized and mobile consistent with complete release. Tenotomy scissors were then util ized to release the remaining distal forearm fascia under direct visualization taking care to preserve the palmar cutaneous branch of the median nerve. Skin closure was performed with interrupted 4-0 Monocryl suture followed by steri strips. Sterile dressing was applied consisting 4x4s, Webril, and an samina bandage. Tourniquet was let down and the hand immediately was well perfused. The patient was then woken by the department of anesthesia and transferred to PACU in stable condition. Misbah CRUZ was present for the case in its entirety and assisted in major portions of the case and protection of vital neurovascular structures. Dakota Duque D.O. Orthopedic Hand/Upper Extremity Surgeon
[2023-09-01 09:00] VITALS: RESP 18
[2023-09-01 09:41] VITALS: BP 129/77; PULSE 59
== END 2023-09-01 09:26 | disposition home or self-care (01) ==
LOC: OR 06:57
PROVIDERS: ATTEND Orthopaedic Surgery Hand Surgery
DX: G56.01 Carpal tunnel syndrome, right upper limb (principal); E78.5 Hyperlipidemia, unspecified; I10 Essential (primary) hypertension; K21.9 Gastro-esophageal reflux disease without esophagitis; N40.0 Benign prostatic hyperplasia without lower urinary tract symptoms; Z90.49 Acquired absence of other specified parts of digestive tract; Z79.82 Long term (current) use of aspirin; Z79.899 Other long term (current) drug therapy; Z86.73 Personal history of transient ischemic attack (TIA), and cerebral infarction without residual deficits
CPT/HCPCS: 29848; J2001; J2250; J1100; J2405; J3010; J2704; J0665